=== PATIENT | female | born 1940 | race Caucasian/White ===

== ENCOUNTER → 2017-08-30 12:45 | Outpatient (CLI) | payer MEDICARE, OTHER, SELFPAY ==
--- NOTE | 2017-08-30 | DI.MG.S_ITS ---
BILATERAL DIGITAL SCREENING MAMMOGRAM 3D/2D WITH CAD: 08/30/2017 CLINICAL: Routine screening. Family history of breast cancer. Comparison is made to exams dated: 05/10/2015 mammogram - [facility], 05/17/2013 mammogram, and 04/23/2011 mammogram - [facility]. There are scattered fibroglandular elements in both breasts. Current study was also evaluated with a Computer Aided Detection (CAD) system. No significant masses, calcifications, or other findings are seen in either breast. There has been no significant interval change. IMPRESSION: NEGATIVE There is no mammographic evidence of malignancy. A 1 year screening mammogram is recommended. This exam was interpreted at Station ID: [id number]. NOTE: For mammograms, a report in lay terms will be sent to the patient. Approximately 15% of breast malignancies will not be visualized mammographically. In the management of a palpable breast mass, a negative mammogram must not discourage biopsy of a clinically suspicious lesion. Electronically Signed By: Jovanni chapman/karla:08/30/2017 16:45:35 letter sent: Normal Exam ACR BI-RADS Category 1: Negative 3341F
== END ==
PROVIDERS: Family Provider Internal Medicine; PCP Internal Medicine; Visit Provider Internal Medicine
DX: Z12.31 Encounter for screening mammogram for malignant neoplasm of breast (principal); Z80.3 Family history of malignant neoplasm of breast; M85.852 Other specified disorders of bone density and structure, left thigh
CPT/HCPCS: 77063; 77067; 77080

== ENCOUNTER → 2017-10-27 13:38 | Oncology outpatient (ONC) | payer MEDICARE, OTHER, SELFPAY ==
[2017-10-27] MEDS: ZOLEDRONIC ACID 5 MG in SODIUM CHLORIDE 0.9% 100 ML 318.75 ML IV (14:35)
[2017-10-27 14:38] VITALS: BP 137/77; RESP 16; TEMP 36.7; O2SAT 97
== END ==
LOC: ONC 13:41
PROVIDERS: Family Provider Internal Medicine; PCP Internal Medicine; Visit Provider Internal Medicine
DX: M81.0 Age-related osteoporosis without current pathological fracture (principal)
CPT/HCPCS: 96374; J3489

== ENCOUNTER 2017-11-04 12:46 | Day surgery (SDC) | payer MEDICARE, OTHER, SELFPAY ==
[2017-11-04 13:03] VITALS: BP 139/77; PULSE 79; RESP 16; TEMP 36.3; O2SAT 98
[2017-11-04] MEDS: SODIUM CHLORIDE 0.9% 1,000 ML 200 ML IV (13:13)
--- NOTE | 2017-11-04 13:42 | PM.HP.1 ---
History of Present Illness Date Patient Seen: 11/04/17 Time Patient Seen: 13:42 Chief complaint: colonoscopy 20019 Narrative: 77-year-old female with personal history of colon cancer status post resection of 2 tumors actually the most recent surgery being 2006. She presents now for colorectal surveillance. It has been a number of years since her last examination following surgery. She has had no gastrointestinal symptoms recently. Denies any nausea, vomiting, abdominal pain, unintended weight loss, change in bowel habits, diarrhea, constipation, melena, hematochezia, or bright red blood per rectum. Patient History Medical History Colon cancer (Acute) Gastroesophageal reflux disease (Acute) Hyperlipidemia (Acute) Hypertension (Acute) Local recurrence of colon cancer (Acute) Osteoporosis (Acute) Surgical History History of colectomy (Acute) History of partial colectomy (Acute) History of tonsillectomy (Acute) Family & Social History Family History: Reviewed 11/04/17 by Jagdeep Jessica MD Social History: household members spouse Meds Home Medications Medication Instructions Recorded Confirmed Type atorvastatin 80 mg PO DAILY 11/03/17 11/04/17 History diltiazem HCl 180 mg PO DAILY 11/03/17 11/04/17 History hydrochlorothiazide 25 mg PO DAILY 11/03/17 11/04/17 History aspirin 325 mg PO DAILY 11/04/17 11/04/17 History ranitidine HCl 150 mg PO DAILY 11/04/17 11/04/17 History Allergies Allergy/AdvReac Type Severity Reaction Status Date / Time No Known Drug Allergies Allergy Verified 11/04/17 13:01 Review of Systems Review of Systems All systems reviewed & are unremarkable except as noted in HPI and below Exam Vital Signs (past 8 hours): - 11/04/17 13:03 Temperature 97.3 F L Pulse Rate 79 Respiratory Rate 16 Blood Pressure 139/77 H Pulse Oximetry 98 Oxygen Delivery Method Room Air,Nasal Cannula Narrative Exam Narrative: Well-nourished well-developed thin female in no acute distress. Alert oriented x3. is at the bedside for my entire visit Sclera nonicteric Neck is supple Chest clear to auscultation bilaterally with regular rate and rhythm. No crackles or wheezes Abdomen soft, nondistended, nontender, no masses Extremities show no clubbing, cyanosis, or edema Objective Labs Labs: No recent laboratory or radiographic studies for review Assessment & Plan Plan: Assessment/Plan Narrative: 77-year-old female with history of colorectal neoplasia on 2 occasions requiring surgical resection who now presents for surveillance. Colonoscopy is currently recommended. Technical details of the procedure were explained. Risks, benefits, alternatives were discussed. Risks including but not limited to sedation, aspiration, bleeding, pain, missed lesion, incomplete examination, need for further radiographic studies, colonic perforation, need for major abdominal surgery, and all attendant risks of major surgery were explained at length. All questions were answered to her satisfaction, and the patient voiced understanding. Consent was placed on the chart. We will proceed as above.
--- NOTE | 2017-11-04 13:46 | PM.PREOP ---
Pre-operative Note Interval Note Pre-op Check: Yes History & Physical Reviewed by Physician, Yes Exam Performed and Yes History & Physical exam performed today by Physician Changes: No H&P completed within 30 days and has changed as indicated here:: Patient seen and examined today. History physical examination documented and placed on the chart. Proceed with colonoscopy today as planned for colorectal surveillance given her history of colorectal cancer. ASA Class (for procedural sedation): II
[2017-11-04] MEDS: MIDAZOLAM 5 MG/5 ML VIAL IV (14:01)
[2017-11-04] MEDS: fentaNYL 250 MCG/5 ML INJ IV (14:01)
[2017-11-04 14:07] VITALS: BP 116/65; PULSE 80; RESP 22; TEMP 36.4; O2SAT 94
--- NOTE | 2017-11-04 14:09 | P.OP.ENDO_ITS ---
Operative Date/Time/Diagnoses Date of procedure: 11/04/17 Time of procedure: 14:05 Pre-op diagnosis: Personal history of colorectal cancer status post colectomy Post-op diagnosis: same Procedure & Clinicians Study performed: 1. Sedation per surgeon 2. Colonoscopy Same procedure as scheduled: Yes Indications: 77-year-old female with personal history of colon cancer on 2 separate occasions requiring surgical resection who presents now for colorectal surveillance. Colonoscopy is once again recommended. Surgeon: Jagdeep Jessica Procedure Notes SCOAP/Timeout: Yes Procedure in detail: After obtaining informed consent the patient was brought to the endoscopy suite and attached all appropriate cardiopulmonary monitors. Nasal cannula oxygen was applied. She was placed in left lateral decubitus position. A SCOAP time-out was performed per standard protocol. Intravenous sedation was achieved per the surgeon using fentanyl and Versed. Digital rectal examination revealed no masses or abnormalities. Colonoscope was inserted into the rectum and the bowel was insufflated with carbon dioxide. Under direct visualization of the colonic lumen the scope was advanced to approximately 55 cm from the anal verge where the ileocolonic anastomosis was identified. Scope was then slowly withdrawn and the bowel was meticulously and circumferentially examined. She had only a small portion of colon remaining but the mucosa was smooth and without any evidence of lesions or inflammation. Few scattered diverticula were noted but without inflammation or strictures. Colocolonic anastomosis was noted to be patent. There is no evidence of any polyps or other neoplastic changes. Retroflex view the distal rectum and anus showed no abnormalities. No significant hemorrhoid disease. Scope was removed and the procedure terminated. Patient taken recovery stable condition. Of note , the withdrawal time was significantly truncated because of the very short residual colon following 2 prior colectomies. Scope withdrawal time: 3:45 min Sedation minutes: 12 Findings: diverticulosis and other findings (Widely patent ileocolonic anastomosis and colocolonic anastomosis) Specimen(s): none sent Complications: none Recommendations: Colonscopy in 3 years Plan for aftercare: 1. Discharged home Follow up: as needed Disposition: PACU
[2017-11-04 14:12] VITALS: BP 116/65; PULSE 77; RESP 22; TEMP 36.6; O2SAT 95
[2017-11-04 14:17] VITALS: BP 108/64; PULSE 89; RESP 23; TEMP 36.4; O2SAT 99
[2017-11-04 14:20] VITALS: BP 126/73; PULSE 83; RESP 16; TEMP 36.6; O2SAT 98
[2017-11-04 14:44] VITALS: BP 121/70; PULSE 81; RESP 16; TEMP 36.7; O2SAT 97
== END 2017-11-04 14:52 ==
LOC: ENDO 12:47
PROVIDERS: Family Provider Internal Medicine; PCP Internal Medicine; Visit Provider Surgery
PROC: 0DJD8ZZ Inspection of Lower Intestinal Tract, Via Natural or Artificial Opening Endoscopic (ICD-10-PCS; CPT 45378; principal; 2017-11-04 14:00)
DX: Z85.038 Personal history of other malignant neoplasm of large intestine (principal); Z90.49 Acquired absence of other specified parts of digestive tract; K57.30 Diverticulosis of large intestine without perforation or abscess without bleeding; K21.9 Gastro-esophageal reflux disease without esophagitis; E78.5 Hyperlipidemia, unspecified; I10 Essential (primary) hypertension
CPT/HCPCS: G0105; 99152; J2250; J3010

== ENCOUNTER → 2018-11-04 11:03 | Outpatient (CLI) | payer MEDICARE, OTHER, SELFPAY ==
[2018-11-04 12:47] LABS: BUN Creatinine Ratio 12.9 (6-22); Blood Urea Nitrogen 9 mg/dL (7-17); Estimated Glomerular Filt Rate > 60.0 mL/min (>60)
== END ==
PROVIDERS: PCP Internal Medicine; Visit Provider Internal Medicine
DX: I10 Essential (primary) hypertension (principal); M81.0 Age-related osteoporosis without current pathological fracture
CPT/HCPCS: 36415; 82565; 84520

== ENCOUNTER → 2019-12-04 11:17 | Outpatient (CLI) | payer MEDICARE, OTHER, SELFPAY ==
[2019-12-04 11:53] LABS: Add Manual Diff / Slide Review NO; Basophils Absolute Auto 0 /uL (0-100); Basophils Percent Auto 0.9 % (0-2); Eosinophils Absolute Auto 300 /uL (0-450); Hematocrit 37.3 % (36-46); Hemoglobin 12.5 g/dL (12.0-16.0); Lymphocytes Absolute Auto 2000 /uL (1100-4500); Lymphocytes Percent Auto 34.4 % (25-40); Mean Corpuscular HGB Conc 33.6 % (30-36); Mean Corpuscular Hemoglobin 31.9 PG (26-34); Mean Corpuscular Volume 94.9 fL (80-100); Monocytes Absolute Auto 700 /uL (0-900); Monocytes Percent Auto 12.8 % (3-14); Neutrophils Absolute Auto 2600 /uL (1500-7000); Neutrophils Percent Auto 45.9 % (50-75); Platelet Count 249 X10^3/uL (150-400); Red Blood Cell Count 3.93 X10^6/uL (4.0-5.2); Red Cell Distribution Width 14.2 % (11.6-14.8); White Blood Cell Count 5.7 X10^3/uL (4.5-11.0)
[2019-12-04 12:12] LABS: Alanine Aminotransferase 21 IU/L (<35); Albumin 4.1 g/dL (3.5-5.0); Albumin Globulin Ratio 1.2 (1.0-2.8); Alkaline Phosphatase 80 U/L (38-126); Aspartate Aminotransferase 31 IU/L (14-36); BUN Creatinine Ratio 14.1 (6-22); Bilirubin Total 0.7 mg/dL (0.2-1.3); Blood Urea Nitrogen 11 mg/dL (7-17); Calcium 9.5 mg/dL (8.4-10.2); Carbon Dioxide 31 mmol/L (22-32); Chloride 103 mmol/L (98-107); Cholesterol 231 mg/dL (140-199); Estimated Glomerular Filt Rate > 60.0 mL/min (>60); Globulin 3.5 g/dL (1.7-4.1); Glucose 91 mg/dL (80-110); HDL Cholesterol 66 mg/dL (40-60); HEMOLYSIS < 15 (0-50); LDL Cholesterol Calculated 133 mg/dL (<100); Potassium 4.3 mmol/L (3.4-5.1); Sodium 138 mmol/L (137-145); Total Protein 7.6 g/dL (6.3-8.2); Triglycerides 161 mg/dL (35-150)
[2019-12-04 13:04] LABS: TSH w/ Reflex to FT4 2.31 uIU/mL (0.47-4.68)
== END ==
PROVIDERS: PCP Internal Medicine; Referring Provider Internal Medicine; Visit Provider Internal Medicine
DX: C18.9 Malignant neoplasm of colon, unspecified (principal); E78.00 Pure hypercholesterolemia, unspecified; I10 Essential (primary) hypertension; M81.0 Age-related osteoporosis without current pathological fracture
CPT/HCPCS: 36415; 80053; 80061; 84443; 85025

== ENCOUNTER → 2019-12-05 14:12 | Outpatient (CLI) | payer MEDICARE, OTHER, SELFPAY | PROVIDERS: PCP Internal Medicine; Referring Provider Internal Medicine; Visit Provider Internal Medicine | DX: M85.852 Other specified disorders of bone density and structure, left thigh (principal); Z78.0 Asymptomatic menopausal state; Z87.891 Personal history of nicotine dependence; Z82.62 Family history of osteoporosis | CPT/HCPCS: 77080 ==

== ENCOUNTER → 2019-12-12 14:00 | Outpatient (CLI) | payer MEDICARE, OTHER, SELFPAY ==
[2019-12-12 14:18] VITALS: BP 126/76; PULSE 18; RESP 15; TEMP 36.3; O2SAT 97
[2019-12-12] MEDS: ZOLEDRONIC ACID 5 MG in SODIUM CHLORIDE 0.9% 100 ML 425 ML IV (14:36)
== END ==
PROVIDERS: PCP Internal Medicine; Referring Provider Internal Medicine; Visit Provider Internal Medicine
DX: M81.0 Age-related osteoporosis without current pathological fracture (principal)
CPT/HCPCS: 96365; J3489

== ENCOUNTER 2022-04-16 02:07 | Emergency (ER) | payer MEDICARE, OTHER, SELFPAY ==
[2022-04-16] VITALS (11 sets, daily range): BP systolic 114–158; BP diastolic 57–78; PULSE 74–89; RESP 10–38; TEMP 36.2–36.6; O2SAT 86–100; BMI 22.8
--- NOTE | 2022-04-16 02:10 | DI.RAD.S_ITS ---
PROCEDURE: XR SHOULDER RT MIN 2V INDICATIONS: eval for fracture vs dislocation TECHNIQUE: 2 views of the shoulder were acquired. COMPARISON: None. FINDINGS: Bones: There is anterior, inferior (subcoracoid) dislocation of the right humeral head. No definite fracture identified. Degenerative changes of the acromioclavicular joint are present. Coracoclavicular and acromioclavicular intervals are maintained. No suspicious bony lesions. Visualized ribs appear intact. Soft tissues: No suspicious soft tissue calcifications. IMPRESSION: Anterior, inferior dislocation of right humeral head without definite fracture identified. No significant discrepancy with the retail shift leader radiology preliminary report. Dictated by: Figueroa Schuster M.D. on 04/16/2022 at 7:48 Approved by: Figueroa Schuster M.D. on 04/16/2022 at 7:50
--- NOTE | 2022-04-16 02:19 | DI.RAD.S_ITS ---
PROCEDURE: XR SHOULDER RT MIN 2V INDICATIONS: post reduction TECHNIQUE: 2 views of the shoulder were acquired. COMPARISON: [facility], CR, XR SHOULDER RT MIN 2V, 04/16/2022, 2:10. FINDINGS: Bones: Post reduction alignment of previously dislocated right humeral head appears to be anatomic in location. There is however, cephalad migration of the humeral head with narrowing of the subacromial space. This may represent sequela underlying chronic rotator cuff tear. No definite fracture identified. Degenerative changes of the acromioclavicular joint. Coracoclavicular and acromioclavicular intervals are maintained. Soft tissues: No suspicious soft tissue calcifications. IMPRESSION: Status post reduction of previously dislocated right humeral head. No definite fracture seen. Cephalad migration of the humeral head with narrowing of the subacromial space may be related to presence of chronic rotator cuff tear. Follow-up imaging can be considered. No significant discrepancy with the material handler 1st shift radiology preliminary report. Dictated by: Figueroa Schuster M.D. on 04/16/2022 at 7:50 Approved by: Figueroa Schuster M.D. on 04/16/2022 at 7:52
--- NOTE | 2022-04-16 02:20 | ED.GENADULT ---
HPI - General Adult General Chief complaint: Trauma Stated complaint: GLF Time Seen by Provider: 04/16/22 02:10 Source: patient and EMS Mode of arrival: EMS Limitations: no limitations History of Present Illness HPI narrative: Patient is an 81-year-old female who is not on anticoagulation who is here for evaluation of a right shoulder injury after sustaining a ground level fall at home. Reported by EMS that the patient called them after falling at home after tripping on the carpet. She is an obvious deformity to the right shoulder. She is received a total of 100 mcg of fentanyl and 20 mg of ketamine prior to arrival. Patient reports no other injuries from the event. No neck pain. Did not hit her head. Related Data Home Medications Medication Instructions Recorded Confirmed atorvastatin 80 mg tablet 80 mg PO DAILY 11/03/17 11/04/17 diltiazem HCl 180 mg capsule,24 180 mg PO DAILY 11/03/17 11/04/17 hr,extended release hydrochlorothiazide 25 mg tablet 25 mg PO DAILY 11/03/17 11/04/17 aspirin 325 mg tablet 325 mg PO DAILY 11/04/17 11/04/17 ranitidine HCl 150 mg tablet 150 mg PO DAILY 11/04/17 11/04/17 Allergies Allergy/AdvReac Type Severity Reaction Status Date / Time No Known Drug Allergies Allergy Verified 11/04/17 13:01 Review of Systems Constitutional Constitutional: Reports system reviewed and no additional complaints, except as documented Cardiovascular Cardiovascular: Reports system reviewed and no additional complaints, except as documented Respiratory Respiratory: Reports system reviewed and no additional complaints, except as documented Musculoskeletal Musculoskeletal: Reports system reviewed and no additional complaints, except as documented Integumentary/Breasts Skin/Breast: Reports system reviewed and no additional complaints, except as documented Neurologic Neurologic: Reports system reviewed and no additional complaints, except as documented Patient History Medical History Colon cancer Gastroesophageal reflux disease Hyperlipidemia Hypertension Local recurrence of colon cancer Osteoporosis Surgical History History of colectomy History of partial colectomy History of tonsillectomy Family History Brother Cancer Social History household members: spouse Exam Initial Vital Signs Initial Vital Signs: Vital Signs Temperature 97.1 F L 04/16/22 02:08 Pulse Rate 89 04/16/22 02:08 Respiratory Rate 20 04/16/22 02:08 Blood Pressure 158/74 H 04/16/22 02:08 Pulse Oximetry 100 04/16/22 02:08 Oxygen Delivery Method 04/16/22 02:08 HENMT Head: normal to inspection and normocephalic Resp Effort & Inspection: normal respiratory effort Auscultation: clear to auscultation bilaterally Cardio Rate: regular rate Rhythm: regular rhythm Neuro General: patient alert and patient awake Extrem Other: Obvious deformity to right shoulder. Her right elbow and wrist doctor I cuff. Left upper extremity is unremarkable. Bilateral lower extremities unremarkable. Pelvis is stable. Procedures Orthopedic Joint Reduction Joint #1: Time Out Performed: Yes Side: right Joint Reduction Location: shoulder Analgesia: procedural sedation Shoulder Technique Used (if applicable): Milch Post-reduction neuro exam: intact Post-reduction vascular: intact Post Reduction X-Ray Obtained: Yes Post Reduction X-Ray Results: reduced Splint Applied: No Patient Tolerated Procedure: Well Procedural Sedation Consent signed: Yes Indication: fracture/dislocation reduction ASA Class: II Mallampati Airway Classification: Class II Preparation: telemetry monitor applied, pulse oximeter, capnometry used, supplemental O2 applied, suction/airway equipment at bedside and IV secured IV Propofol dose (mg): 60 Intraservice time/total sedation time (min): 15 ED Sedation Level: Moderate (Concious) Patient Tolerated Procedure: Well Complications: hypoventilation Interventions: Airway repositioned Scores GCS Cristel coma scale eye opening: Spontaneous [place] coma scale verbal response: Orientated [place] coma scale motor response: Obey commands [place] coma scale total score: 15 Nexus Score for C-Spine Focal Neurologic deficit present: No Midline spinal tenderness present: No Altered level of conciousness present: No Intoxication present: No Distracting Injury Present: No Nexus Criteria for C-spine: 0 Course Orders Ordered: ED Orders 04/16/22 02:10 XR shoulder RT min 2V Stat 04/16/22 02:19 XR shoulder RT min 2V Stat RT Consult Eval and Treat Now Sodium Chloride (Normal Saline 0.9%) 1,000 mls @ 125 mls/hr IV CONT AMIE Last Infusion: 04/16/22 04:09 Dose: 0 mls/hr Documented By: Admin: 04/16/22 02:30 Dose: 125 mls/hr Documented By: TEE Discontinued Medications Propofol (Propofol 200 Mg/20 Ml Vial) 100 mg IV NOW ONE Stop: 04/16/22 02:19 Last Admin: 04/16/22 02:30 Dose: 60 mg Documented By: TEE Vital Signs Vital signs: Vital Signs - 8 hr 04/16/22 02:08 04/16/22 02:30 04/16/22 02:35 Temperature 97.1 F L Pulse Rate 89 80 75 Respiratory Rate 20 16 10 L Blood Pressure 158/74 H 142/65 H 141/71 H Pulse Oximetry 100 100 96 Oxygen Delivery Method Room Air Oxygen Flow Rate 6 04/16/22 02:37 04/16/22 02:42 04/16/22 02:30 Temperature Pulse Rate 79 79 80 Respiratory Rate 16 16 Blood Pressure 122/58 L 146/66 H 142/65 H Pulse Oximetry 94 100 100 Oxygen Delivery Method Oxygen Flow Rate 6 6 04/16/22 02:35 04/16/22 02:40 04/16/22 02:45 Temperature Pulse Rate 77 76 79 Respiratory Rate 35 H 20 28 H Blood Pressure 114/71 122/58 L Pulse Oximetry 88 L 100 Oxygen Delivery Method Oxygen Flow Rate 04/16/22 02:50 04/16/22 03:00 04/16/22 02:46 Temperature Pulse Rate 83 75 76 Respiratory Rate 31 H 38 H 14 Blood Pressure 146/66 H 133/57 L Pulse Oximetry 86 L 100 Oxygen Delivery Method Oxygen Flow Rate Medical Decision Making Lab Data Labs: Point of Care Testing Test Results Not applicable Point of care testing: Point of Care Testing Test Results Not applicable Imaging Data Extremity x-ray #1: Radiologist's Impression: Sub coracoid anterior shoulder dislocation Extremity x-ray #2: Radiologist's Impression: Successful reduction of previously noted anterior shoulder dislocation MDM Narrative Medical decision making narrative: Patient's right shoulder was dislocated and it was reduced as described above. She is no other injuries from the event. Her C-spine is cleared by nexus criteria. She did not hit her head. Will hold on any further radiologic studies. Patient was able to stand and walk at bedside and was also able to tolerate oral intake. Patient felt comfortable going home. Was discharged to her with return precautions and follow-up instructions and care instructions. She expressed understanding and agreement. Discharge Plan Departure Patient Disposition: Home Clinical Impression: Shoulder dislocation Instructions: How to Use a Sling, DI for Shoulder Dislocation Activity Restrictions/Additional Instructions: The sling is for your comfort. You can take it off to shower and to get dressed. I recommend that you contact your primary doctor for follow-up as you will most likely require physical therapy. Take all of your medications as directed. Return to the emergency department for any new or worsening symptoms Prescriptions: No Action atorvastatin 80 mg Tablet 80 mg PO DAILY diltiazem HCl 180 mg Capsule,Extended Release 24 Hr 180 mg PO DAILY hydrochlorothiazide 25 mg Tablet 25 mg PO DAILY ranitidine HCl 150 mg Tablet 150 mg PO DAILY aspirin 325 mg Tablet 325 mg PO DAILY Referrals: Jagdeep Robin MD [Primary Care Provider] - Stand Alone Forms: Patient Portal/API
[2022-04-16] MEDS: propofoL 200 MG/20 ML VIAL 100 MG IV (02:30)
[2022-04-16] MEDS: SODIUM CHLORIDE 0.9% 1,000 ML 125 ML IV (02:30)
--- NOTE | 2022-04-16 02:43 | PC.NURSE ---
Procedural sedation complete. A total of 60mg of propofol given. Pt is alert and talking to staff. Post procedure XRs obtained and sling has been applied to R arm. Pt coughs on command and reports feeling better.
== END 2022-04-16 04:30 | disposition home or self-care (01) ==
PROVIDERS: Emergency Provider Emergency Medicine; PCP Internal Medicine
DX: S43.004A Unspecified dislocation of right shoulder joint, initial encounter (principal); W01.0XXA Fall on same level from slipping, tripping and stumbling without subsequent striking against object, initial encounter; Z79.899 Other long term (current) drug therapy
CPT/HCPCS: 23650; 73030; 96360; 96361; 99152; 99284; 99285; 99291; J2704

== ENCOUNTER 2022-04-18 12:03 | Emergency (ER) | payer MEDICARE, OTHER, SELFPAY ==
[2022-04-18 12:10] VITALS: BP 179/83; PULSE 117; RESP 18; TEMP 36.3; O2SAT 100; BMI 22.4
--- NOTE | 2022-04-18 12:16 | DI.RAD.S_ITS ---
PROCEDURE: XR NASAL BONES MIN 3V INDICATIONS: fall, bleeding from nose TECHNIQUE: 3 views of the nasal bones acquired. COMPARISON: None. FINDINGS: Bones: No fractures or dislocations. Nasal septum is midline. Normal nasociliary nerve grooves are noted. Soft tissues: No suspicious soft tissue calcifications. IMPRESSION: Normal nasal bone radiographs. No fracture. Approved by: Antione Ruiz M.D. on 04/18/2022 at 12:21
--- NOTE | 2022-04-18 12:41 | ED.FALL ---
HPI - Fall General Chief Complaint: Fall Stated Complaint: broke nose on Wed. started bleeding Time Seen by Provider: 04/18/22 12:13 Source: patient Mode of arrival: Ambulatory History of Present Illness HPI Narrative: Patient is a 81-year-old female history of hypertension tried on aspirin presenting today with epistaxis. SHe actually fell April 16 she grabbed onto a chair with wheels and fell onto her left shoulder and had a left shoulder dislocation. She did not hit her head or lose consciousness. She did hit her nose a little bit. Mild contusion. She is not been nauseated vomiting no numbness tingling or weakness. She now says that she woke up this morning she felt like she had a blow her nose that there was something back there and she blew out a bunch of blood it took a while for it to stop it actually did stop in the emergency department. It also has restarted since then she initially felt like it was coming out the [id number] command right. She denies any dizziness lightheadedness chest pain shortness of breath or other symptoms Related Data Home Medications Medication Instructions Recorded Confirmed atorvastatin 80 mg tablet 80 mg PO DAILY 11/03/17 11/04/17 diltiazem HCl 180 mg capsule,24 180 mg PO DAILY 11/03/17 11/04/17 hr,extended release hydrochlorothiazide 25 mg tablet 25 mg PO DAILY 11/03/17 11/04/17 aspirin 325 mg tablet 325 mg PO DAILY 11/04/17 11/04/17 ranitidine HCl 150 mg tablet 150 mg PO DAILY 11/04/17 11/04/17 Allergies Allergy/AdvReac Type Severity Reaction Status Date / Time No Known Drug Allergies Allergy Verified 11/04/17 13:01 Patient History Medical History (Updated 04/18/22 @ 14:46 by Gissell Stern DO) Colon cancer Gastroesophageal reflux disease Hyperlipidemia Hypertension Local recurrence of colon cancer Osteoporosis Surgical History History of colectomy History of partial colectomy History of tonsillectomy Family History Brother Cancer Social History household members: spouse Substance Use Type: does not use Exam Initial Vital Signs Initial Vital Signs: Vital Signs Temperature 97.3 F L 04/18/22 12:10 Pulse Rate 117 H 04/18/22 12:10 Respiratory Rate 18 04/18/22 12:10 Blood Pressure 179/83 H 04/18/22 12:10 Pulse Oximetry 100 04/18/22 12:10 Oxygen Delivery Method 04/18/22 12:10 GENERAL: Alert pleasant 81-year-old female no acute distress HEENT: Head atraumatic,EOMI, pupils reactive, face symmetric, moist mucous membranes, NOSE: No active bleeding, mild contusion but no gross bony deformity of the no PHARYNX: I do not appreciate significant blood in posterior pharynx CARDIOVASCULAR: Regular rate and rhythm without murmurs, rubs or gallops. RESPIRATORY: Breath sounds equal bilaterally, no wheezes rales or rhonchi. EXTREMITIES: Normal range of motion, no clubbing or edema. Neurovascularly intact NEUROLOGICAL: Alert and oriented x4. SKIN: Warm, dry, no laceration, no petechiae, no rashes or lesions. Course Orders Ordered: ED Orders 04/18/22 12:16 XR nasal bones min 3V Stat Discontinued Medications Oxymetazoline HCl (Oxymetazoline Nasal [place] 15 Ml) 2 sprays NASAL NOW ONE Stop: 04/18/22 13:16 Last Admin: 04/18/22 13:28 Dose: 2 sprays Documented By: BORIS Vital Signs Vital signs: Vital Signs - 8 hr 04/18/22 12:10 04/18/22 14:53 Temperature 97.3 F L Pulse Rate 117 H 95 H Respiratory Rate 18 Blood Pressure 179/83 H 145/72 H Pulse Oximetry 100 98 Oxygen Delivery Method Room Air Room Air MDM - Fall Imaging Data XR nasal bone: Radiologist's Impression: JAVIER Zhu [id number] XRay Report Signed Patient: Zina Garcia MR#: [id number] : 1940 Acct:[id number] Age/Sex: 81 / F Date of Service: 04/18/22 Loc: ED Accession Number: [id number] ?? Procedure: XR nasal bones min 3V Ordering Provider: Gissell Stern D.O. PROCEDURE:? XR NASAL BONES MIN 3V ? INDICATIONS:? fall, bleeding from nose ? TECHNIQUE:? 3 views of the nasal bones acquired.? ? COMPARISON:? None. ? FINDINGS:? ? Bones:? No fractures or dislocations.? Nasal septum is midline.? Normal nasociliary nerve grooves are noted.? ? Soft tissues:? No suspicious soft tissue calcifications.? ? IMPRESSION:? Normal nasal bone radiographs.? No fracture. ? ? ? Approved by: Antione Ruiz M.D. on 04/18/2022 at 12:21? MDM Narrative Medical decision making narrative: Patient 81-year-old female on aspirin presents epistaxis. Actually had stopped bleeding and then restarted again. She had Afrin and then a nasal clamp. It has now stopped bleeding again for a 2nd time. No evidence of posterior bleeding. She overall feels comfortable and ready to go home. Her nasal bone x-ray is negative for fracture. We discussed how to care for it at home. She did fall a couple days ago did not really hit her head lose consciousness. She has no focal deficits nausea or vomiting. At this time I do not see any need for CT imaging. Discharge Plan Departure Patient Disposition: Home Clinical Impression: Epistaxis Instructions: Nosebleed Activity Restrictions/Additional Instructions: *You have been diagnosed with nosebleed *What to do: At this time if you start having nosebleed again apply the clamp for about 30-45 minutes you may also apply ice at this time. If it is still bleeding use a couple sprays of Afrin each nostril and apply the clamp again. If this continues to bleed or is running down the back of your throat please return to the emergency department *Continue to take medications as directed *Follow up with your primary care provider in 2-3 days or call [phone] *Return to ER if you should have persistent bleeding despite above measures or any new, worsening or concerning symptoms Prescriptions: No Action atorvastatin 80 mg Tablet 80 mg PO DAILY diltiazem HCl 180 mg Capsule,Extended Release 24 Hr 180 mg PO DAILY hydrochlorothiazide 25 mg Tablet 25 mg PO DAILY ranitidine HCl 150 mg Tablet 150 mg PO DAILY aspirin 325 mg Tablet 325 mg PO DAILY Referrals: Christi Ascencio MD [Primary Care Provider] - Stand Alone Forms: Patient Portal/API
[2022-04-18] MEDS: OXYMETAZOLINE NASAL SPRAY 15 ML 2 SPRAYS NASAL (13:28)
[2022-04-18 14:53] VITALS: BP 145/72; PULSE 95; O2SAT 98
== END 2022-04-18 14:57 | disposition home or self-care (01) ==
PROVIDERS: Emergency Provider Emergency Medicine; PCP Internal Medicine
DX: R04.0 Epistaxis (principal); Z79.82 Long term (current) use of aspirin
CPT/HCPCS: 70160; 99283; A9270

== ENCOUNTER → 2024-01-12 09:42 | Outpatient (CLI) | payer MEDICARE, OTHER, SELFPAY ==
--- NOTE | 2024-01-12 09:44 | DI.RAD.S_ITS ---
PROCEDURE: XR DEXA AXIAL SKELETON INDICATIONS: FU ON OSTEOPOROSIS COMPARISON: [facility], CR, XR DEXA AXIAL SKELETON, 12/05/2019, 14:33. FINDINGS: Lumbar Spine: Bone mineral density 1.177 g/cm2, T score 1.8, compared to 1.6. Left Hip: Bone mineral density 0.664 g/cm2, T score -2.3, compared to -1.9. Left Femoral Neck: Bone mineral density 0.613 g/cm2, T score -2.1, compared to -2.2. Right Hip: Bone mineral density 0.671 g/cm2, T score -2.2, compared to -2.1. Right Femoral Neck: Bone mineral density 0.632 g/cm2, T score -2.0, compared to -2.1. Fracture Risk Calculation (when applicable): 10-year fracture risk of a major osteoporotic fracture 14% percent and of a hip fracture 4.3% percent. (T score greater or equal to -1.0 to: NORMAL) (T score from -1.1 to -2.4: OSTEOPENIA) (T score less than or equal to -2.5: OSTEOPOROSIS) IMPRESSION: Severe osteopenia within the left and right hips progressive compared to prior exam. Follow-up guidelines as follows: Osteoporosis: Consider a repeat DEXA and Vertebral Fracture Assessment (VFA) exam in 2 years or sooner if medically necessary, to reassess this patient's status. Osteopenia: Consider a repeat DEXA in 2-3 years to reassess this patient's status, or if there is a new clinical indication. Normal: Consider a repeat DEXA in 5 years or sooner, or if there is a new clinical indication. All treatment decisions require clinical judgment and consideration of individual patient factors, including patient preferences, comorbidities, previous drug use, risk factors not captured in the FRAX model (e.g., frailty, falls, vitamin D deficiency, increased bone turnover, interval significant decline in bone density ) and possible under- or over-estimation of fracture risk by FRAX. In addition, the NOF Guide recommends that FDA-approved medical therapies be considered in postmenopausal women and men age >= 50 years with a: * Hip or vertebral (clinical or morphometric) fracture * T-score of <=-2.5 at the spine or hip * Ten-year fracture probability by FRAX of >= 3% for hip fracture or >=20% for major osteoporotic fracture. People with diagnosed cases of osteoporosis or at high risk for fracture should have regular bone mineral density tests. For patients eligible for Medicare, routine testing is allowed once every 2 years. The testing frequency can be increased to one year for patients who have rapidly progressing disease, those who are receiving or discontinuing medical therapy to restore bone mass, or have additional risk factors. Dictated by: Ernestine Centeno M.D. on 01/12/2024 at 16:33 Approved by: Ernestine Centeno M.D. on 01/12/2024 at 16:35
== END ==
PROVIDERS: PCP Internal Medicine; Referring Provider Internal Medicine; Visit Provider Internal Medicine
DX: M81.0 Age-related osteoporosis without current pathological fracture (principal)
CPT/HCPCS: 77080

== ENCOUNTER 2024-05-26 21:31 | Emergency (ER) | payer MEDICARE, OTHER, SELFPAY ==
[2024-05-26 21:38] VITALS: BP 153/65; PULSE 104; RESP 18; TEMP 36.1; O2SAT 100; BMI 20.5
[2024-05-26 22:16] LABS: Add Manual Diff / Slide Review NO; Basophils Absolute Auto 0 /uL (0-100); Basophils Percent Auto 0.3 % (0-2); Eosinophils Absolute Auto 300 /uL (0-450); Eosinophils Percent Auto 2.5 % (2-4); Hematocrit 23.9 % (36-46); Hemoglobin 7.6 g/dL (12.0-16.0); Lymphocytes Absolute Auto 2500 /uL (1100-4500); Lymphocytes Percent Auto 24.7 % (25-40); Mean Corpuscular HGB Conc 31.7 % (30-36); Mean Corpuscular Hemoglobin 24.2 PG (26-34); Mean Corpuscular Volume 76.2 fL (80-100); Monocytes Absolute Auto 1200 /uL (0-900); Monocytes Percent Auto 11.9 % (3-14); Neutrophils Absolute Auto 6100 /uL (1500-7000); Neutrophils Percent Auto 60.6 % (50-75); Platelet Count 463 X10^3/uL (150-400); Red Blood Cell Count 3.14 X10^6/uL (4.0-5.2); Red Cell Distribution Width 17.7 % (11.6-14.8); White Blood Cell Count 10.2 X10^3/uL (4.5-11.0)
[2024-05-26 22:20] LABS: INR 1.1 (0.9-1.3); Prothrombin Time 12.2 SECONDS (9.4-12.5)
[2024-05-26 22:22] LABS: PTT Partial Thromboplastin Tim 30 SECONDS (25.1-36.5)
[2024-05-26 22:25] LABS: Alanine Aminotransferase 38 IU/L (<35); Albumin 3.4 g/dL (3.5-5.0); Alkaline Phosphatase 80 U/L (38-126); Aspartate Aminotransferase 72 IU/L (14-36); BUN Creatinine Ratio 20.4 (6-22); Bilirubin Total 0.3 mg/dL (0.2-1.3); Blood Urea Nitrogen 21 mg/dL (7-17); Calcium 8.4 mg/dL (8.4-10.2); Carbon Dioxide 27 mmol/L (22-32); Chloride 102 mmol/L (98-107); Estimated Glomerular Filt Rate 54 mL/min (>60); Globulin 3.3 g/dL (1.7-4.1); Glucose 96 mg/dL (80-110); HEMOLYSIS < 15 (0-50); Potassium 3.3 mmol/L (3.4-5.1); Sodium 135 mmol/L (137-145); Total Protein 6.7 g/dL (6.3-8.2)
[2024-05-26 23:44] VITALS: BP 130/60; PULSE 88; RESP 20; TEMP 37.1; O2SAT 98
[2024-05-27] VITALS (11 sets, daily range): BP systolic 131–150; BP diastolic 60–65; PULSE 73–84; RESP 16–18; TEMP 36.5–36.7; O2SAT 99–100
--- NOTE | 2024-05-27 02:58 | ED.RECABL ---
HPI - Recheck/Abnormal Lab/Rx General Chief Complaint: Recheck/Abnormal Lab/Rx Stated Complaint: PCP sent in for low H&H results Time Seen by Provider: 05/26/24 22:52 Source: patient, RN notes reviewed and old records reviewed Mode of arrival: Ambulatory Limitations: no limitations History of Present Illness HPI narrative: 83-year-old female history of hypertension, dyslipidemia history of colon cancer remotely with colon resection. Patient states she had prior colonoscopies about 10-15 years ago which were negative was told she did not have to worry about it anymore. She had outpatient labs with her primary care was found to be anemic she has been told she was low before but they told her to come to the ER because she needed blood. She was felt little more tired and fatigued but denies any other symptoms. No fevers or chills no chest pain or shortness of breath. No nausea or vomiting. No diarrhea or constipation. No black or bloody stools. No dysuria urgency or frequency. She has not noted any inappropriate bleeding or bruising. She did require a blood transfusion once many years ago when she had colon cancer. She states no anticoagulants but appears to be on aspirin daily. No known drug allergies. Former smoker, 1 or 2 alcoholic drinks daily, no recreational drugs. Her primary care today prescribe her iron as well as PPI. Primary care is Dr. Christi ascencio. She was accompanied by her daughter. Related Data Home Medications Medication Instructions Recorded Confirmed atorvastatin 80 mg tablet 80 mg PO DAILY 11/03/17 11/04/17 diltiazem HCl 180 mg capsule,24 180 mg PO DAILY 11/03/17 11/04/17 hr,extended release hydrochlorothiazide 25 mg tablet 25 mg PO DAILY 11/03/17 11/04/17 aspirin 325 mg tablet 325 mg PO DAILY 11/04/17 11/04/17 ranitidine HCl 150 mg tablet 150 mg PO DAILY 11/04/17 11/04/17 Allergies Allergy/AdvReac Type Severity Reaction Status Date / Time No Known Drug Allergies Allergy Verified 11/04/17 13:01 Review of Systems Review of Systems ROS Unobtainable: All systems reviewed & are unremarkable except as noted in HPI and below Patient History Medical History (Updated 05/27/24 @ 03:17 by Radhika Choudhury DO) Osteoporosis Gastroesophageal reflux disease Hyperlipidemia Hypertension Local recurrence of colon cancer Colon cancer Surgical History History of tonsillectomy History of partial colectomy History of colectomy Family History Brother Cancer Social History household members: spouse Smoking Status: Former smoker Smoking Status: Former smoker Exam Narrative Exam Narrative: GENERAL: Alert and oriented x three, thin female in no acute distress. HEENT: Head normocephalic, atraumatic, EOMI, pupils reactive, face symmetric, moist mucous membranes NECK: Supple, full range of motion CARDIOVASCULAR: Regular rate and rhythm without murmurs, rubs or gallops. RESPIRATORY: Breath sounds equal bilaterally, no wheezes rales or rhonchi. ABDOMEN: Soft, nontender. Normoactive bowel sounds all 4 quadrants. No guarding or rebound, rigidity, no mass, ELENITA patient has hard stool, no black or blood, stool occult faintly positive. : No CVA tenderness EXTREMITIES: Normal range of motion, no clubbing or edema. Neurovascularly intact NEUROLOGICAL: Cranial nerves II through XII grossly intact. Moving all extremities SKIN: Warm, dry, no petechiae, no rashes or lesions. Initial Vital Signs Initial Vital Signs: Vital Signs Temperature 97.0 F L 05/26/24 21:38 Pulse Rate 104 H 05/26/24 21:38 Respiratory Rate 18 05/26/24 21:38 Blood Pressure 153/65 H 05/26/24 21:38 Pulse Oximetry 100 05/26/24 21:38 Oxygen Delivery Method Room Air 05/26/24 21:38 Course Orders Ordered: ED Orders 05/26/24 21:51 Complete Blood Count AUTO DIFF Stat Comprehensive Metabolic Panel Stat PTT Partial Thromboplastin Jason Stat Prothrombin Time INR Stat Type and Screen Stat 05/27/24 00:25 PRBC [Packed Cells] Stat Discontinued Medications Pantoprazole Sodium (Pantoprazole 40 Mg Vial) 80 mg IV NOW ONE Stop: 05/27/24 03:14 Last Admin: 05/27/24 05:08 Dose: 80 mg Documented By: MS Potassium Chloride (Potassium Chloride 20 Meq Tab) 40 meq PO NOW ONE Stop: 05/27/24 03:00 Last Admin: 05/27/24 03:07 Dose: 40 meq Documented By: Vital Signs Vital signs: Vital Signs - 8 hr 05/26/24 23:44 05/27/24 02:45 05/27/24 02:46 Temperature 98.8 F Pulse Rate 88 Respiratory Rate 20 Blood Pressure 130/60 142/62 H Pulse Oximetry 98 99 Oxygen Delivery Method Room Air 05/27/24 02:46 05/27/24 02:57 05/27/24 03:00 Temperature 98 F Pulse Rate 77 73 Respiratory Rate 16 Blood Pressure 142/62 H 131/60 Pulse Oximetry 99 Oxygen Delivery Method 05/27/24 03:00 05/27/24 03:13 05/27/24 03:30 Temperature 97.7 F Pulse Rate 74 83 75 Respiratory Rate 18 Blood Pressure 131/60 Pulse Oximetry 99 100 Oxygen Delivery Method Room Air 05/27/24 03:30 05/27/24 04:00 05/27/24 04:00 Temperature Pulse Rate 80 Respiratory Rate Blood Pressure 145/65 H 138/61 Pulse Oximetry 100 Oxygen Delivery Method 05/27/24 04:18 05/27/24 04:18 05/27/24 04:30 Temperature Pulse Rate 84 Respiratory Rate 18 Blood Pressure 136/65 137/65 Pulse Oximetry 100 Oxygen Delivery Method 05/27/24 04:30 05/27/24 05:00 05/27/24 05:00 Temperature 98.1 F 97.7 F Pulse Rate 77 78 Respiratory Rate 16 16 Blood Pressure 137/65 150/65 H Pulse Oximetry 100 Oxygen Delivery Method Room Air 05/27/24 05:00 05/27/24 05:02 Temperature 97.7 F Pulse Rate 82 78 Respiratory Rate 16 16 Blood Pressure 137/65 Pulse Oximetry 100 Oxygen Delivery Method Room Air MDM - Recheck/Abnormal Lab/Rx Lab Data 05/26/24 21:51 05/26/24 21:51 Labs: Lab Results 05/26/24 Range/Units 21:51 WBC 10.2 (4.5-11.0) X10^3/uL RBC 3.14 L (4.0-5.2) X10^6/uL Hgb 7.6 L (12.0-16.0) g/dL Hct 23.9 L (36-46) % MCV 76.2 L (80-100) fL MCH 24.2 L (26-34) PG MCHC 31.7 (30-36) % RDW 17.7 H (11.6-14.8) % Plt Count 463 H (150-400) X10^3/uL Neut % (Auto) 60.6 (50-75) % Lymph % (Auto) 24.7 L (25-40) % [place] % (Auto) 11.9 (3-14) % Eos % (Auto) 2.5 (2-4) % Baso % (Auto) 0.3 (0-2) % Neut # (Auto) 6100 (8432-9902) /uL Lymph # (Auto) 2500 (5803-7129) /uL [place] # (Auto) 1200 H (0-900) /uL Eos # (Auto) 300 (0-450) /uL Baso # (Auto) 0 (0-100) /uL PT 12.2 (9.4-12.5) SECONDS INR 1.1 (0.9-1.3) APTT 30 (25.1-36.5) SECONDS Sodium 135 L (137-145) mmol/L Potassium 3.3 L (3.4-5.1) mmol/L Chloride 102 (98-107) mmol/L Carbon Dioxide 27 (22-32) mmol/L BUN 21 H (7-17) mg/dL Creatinine 1.03 (0.52-1.04) mg/dL Estimated GFR 54 L (>60) mL/min BUN/Creatinine Ratio 20.4 (6-22) Glucose 96 (80-110) mg/dL Calcium 8.4 (8.4-10.2) mg/dL Total Bilirubin 0.3 (0.2-1.3) mg/dL AST 72 H (14-36) IU/L ALT 38 H (<35) IU/L Alkaline Phosphatase 80 (38-126) U/L Total Protein 6.7 (6.3-8.2) g/dL Albumin 3.4 L (3.5-5.0) g/dL Globulin 3.3 (1.7-4.1) g/dL Albumin/Globulin Ratio 1.0 (1.0-2.8) Blood Type O Positive Antibody Screen Negative Crossmatch See Detail MDM Narrative Medical decision making narrative: 83-year-old female sent by primary care for low H and H she has been reportedly to be anemic in the past but not this low. I do not have any prior labs available for comparison. Patient was slightly tachycardic but in the room is 73 without any additional intervention she was not been hypotensive. Patient was given a PPI, discussed and we will transfuse 1 unit. After discussion discussed observation versus discharge home with plan for colonoscopy. Patient and family elected discharge home but did offer to chat with the hospitalist. Labs show white count of 10 hemoglobin of 7.6 was 12.5 and 2020 microcytic with platelets of 463. Coags are negative sodium is 135 potassium 3.3, chloride 102 CO2 is 27 BUN 21 creatinine 1.03 glucose is 96 AST is 72 ALT is 38. Patient tolerated quite well. She feels comfortable returning home afterwards in his accompanied by her family. Discharge Plan Departure Patient Disposition: Home Clinical Impression: Anemia Activity Restrictions/Additional Instructions: On your evaluation it is possible that your anemia could be from GI bleed I do recommend that you have colonoscopy and/or EGD for evaluation particularly with your history of colon cancer. Contacts included below to set this up please call Wednesday morning. Please talk with your physician to have your labs rechecked in the next several days. Take the medications prescribed by your physician including the iron and antacid medication to protect your stomach. Please return for fevers, new abdominal back or flank pain, lightheadedness or passing out, vomiting, black or bloody stools or other new or concerning changes. Prescriptions: No Action atorvastatin 80 mg Tablet 80 mg PO DAILY diltiazem HCl 180 mg Capsule,Extended Release 24 Hr 180 mg PO DAILY hydrochlorothiazide 25 mg Tablet 25 mg PO DAILY ranitidine HCl 150 mg Tablet 150 mg PO DAILY aspirin 325 mg Tablet 325 mg PO DAILY Referrals: Tae Cook MD [Physician] - Christi Ascencio MD [Primary Care Provider] - Stand Alone Forms: Patient Portal/API/Survey
[2024-05-27] MEDS: POTASSIUM CHLORIDE 20 MEQ TAB 40 MEQ PO (03:07)
--- NOTE | 2024-05-27 03:14 | PC.NURSE ---
Pt reports denies dizziness or lightheadedness, denies signs of bleeding, including in gi tract. does state has had diarrhea about 1 week ago for about 8 days, denies dark tarry looking of blood visible.
[2024-05-27] MEDS: PANTOPRAZOLE 40 MG VIAL 80 MG IV (05:08)
== END 2024-05-27 05:30 | disposition home or self-care (01) ==
PROVIDERS: Emergency Provider Emergency Medicine; PCP Internal Medicine
DX: D64.9 Anemia, unspecified (principal); I10 Essential (primary) hypertension; E78.5 Hyperlipidemia, unspecified; Z85.038 Personal history of other malignant neoplasm of large intestine; Z87.891 Personal history of nicotine dependence; F10.90 Alcohol use, unspecified, uncomplicated
CPT/HCPCS: 36415; 36430; 80053; 85025; 85610; 85730; 86850; 86900; 86901; 96374; 99284; 99285; P9016; J2470

== ENCOUNTER 2024-06-09 19:34 | Observation (INO) | payer MEDICARE, OTHER, SELFPAY ==
[2024-06-09] VITALS (12 sets, daily range): BP systolic 87–139; BP diastolic 34–69; PULSE 74–111; RESP 12–90; TEMP 36.3–37; O2SAT 97–99; BMI 20.1
--- NOTE | 2024-06-09 | PATH_ITS ---
[facility] Accession Number: [id number] No. of containers..02 Tissue . 01 Material submitted: . PART A: colon - ILEALCOLONIC ANASTAMONIC MASS PART B: colon - DESCENDING POLYP . 01 Diagnosis: A. ILEOCOLONIC ANASTOMOTIC MASS, BIOPSY: Invasive adenocarcinoma, well to moderately differentiated. See comment. . B. DESCENDING COLON: Tubular adenoma. See comment. MRV 06/13/2024 1248 Local . 01 Comment: Part A: Immunohistochemistry for mismatch repair protein status has been performed with the following results: . MLH1: Loss of expression. PMS2: Loss of expression. MSH2: Intact nuclear expression. MSH6: Intact nuclear expression. . Loss of nuclear expression of MLH1 and PMS2: Testing for methylation of the MLH1 promoter and/or mutation of BRAF is indicated (the presence of a BRAF V600E mutation and/or MLH1 methylation suggests that the tumor is sporadic and germline evaluation is probably not indicated; absence of both MLH1 methylation and of BRAF V600E mutation suggests the possibility of Myers syndrome and sequencing and/or large deletion/duplication testing of germline MLH1 may be indicated). . Testing for MLH1 promotor methylation and BRAF mutation analysis has been ordered and the results will be reported in an addendum. . Part B: A separate fragment of tumor is present along with, but not directly associated with, the tubular adenoma. This fragment is favored to be carryover from the tumor in part A. Clinical and endoscopic correlation is recommended. . Dr. Jovanni Lott has reviewed this case and agrees with the above diagnosis. . The preliminary results were discussed with Dr. Braxton at 11:00 am on 06/13/2024. . Technical Note: The immunohistochemical stains reported were performed with appropriate controls at [facility] ([facility] [address], [facility] [address]). This test was developed and performance characteristics validated by [facility]. It has not been cleared or approved by the Food and Drug Administration. . 01 Electronically signed: . Elizabeth Argueta DO, Pathologist NPI- [id number] . 01 Gross description: . Part A: ILEALCOLONIC ANASTAMONIC MASS: Received in formalin are 3 fragment(s) of rose, soft tissue measuring 0.2 x 0.2 x 0.2 cm to 0.5 x 0.3 x 0.2 cm submitted entirely in 1 cassette(s) Part B: DESCENDING POLYP : Received in formalin are 3 fragment(s) of rose, soft tissue measuring 0.1 x 0.1 x 0.1 cm to 0.3 x 0.3 x 0.2 cm submitted entirely in 1 cassette(s) /JOSEY 06/10/2024 0108 Local . 01 Pathologist provided ICD-10: Z12.11, C18.9 . 01 CPT . 589099, 007427, S52383, M71268 Specimen Comment: A courtesy copy of this report has been sent to [facility] Pathology Performed at: [address], [place], [place] [id number] MD Jovanni Lott MD Phone: [phone]
--- NOTE | 2024-06-09 14:32 | PM.HP.IH.1 ---
History of Present Illness History of Present Illness Date Patient Seen: 06/09/24 Time Patient Seen: 14:32 [place] [facility] [place]: this is a 84-year-old with a history of hypertension and colon cancer who presents for new onset of anemia. Patient states that she was feeling quite tired in April and became short of breath. She presented to the emergency department and underwent an assessment and was found to be anemic. Patient's hemoglobin was 8. She was discharged and told to follow up for outpatient EGD and colonoscopy. Patient denies any abdominal pain. Patient states that since her colon cancer diagnosis and her undergoing 2 resections, she is overall felt well denies any significant issues. [facility] Medical History (Updated 06/09/24 @ 14:34 by Lien Braxton MD) Osteoporosis Gastroesophageal reflux disease Hyperlipidemia Hypertension Local recurrence of colon cancer Colon cancer Surgical History History of tonsillectomy History of partial colectomy History of colectomy Family History Brother Cancer Social History household members: spouse Smoking Status: Former smoker Meds Home Medications and Allergies Home Medications Medication Instructions Recorded Confirmed Type atorvastatin 80 mg tablet 80 mg PO DAILY 11/03/17 06/09/24 History diltiazem HCl 180 mg capsule,24 180 mg PO DAILY 11/03/17 06/09/24 History hr,extended release hydrochlorothiazide 25 mg tablet 25 mg PO DAILY 11/03/17 06/09/24 History aspirin 325 mg tablet 325 mg PO DAILY 11/04/17 06/09/24 History sodium,potassium,mag sulfates 17.5 See Rx Instructions PO .COMPLEX 06/05/24 Rx gram-3.13 gram-1.6 gram oral soln #354 mL (Suprep Bowel Prep Kit) Allergies Allergy/AdvReac Type Severity Reaction Status Date / Time No Known Drug Allergies Allergy Verified 06/09/24 12:30 Exam Vital Signs (past 8 hours): - 06/09/24 12:37 Temperature 97.5 F L Pulse Rate 111 H Respiratory Rate 16 Blood Pressure 139/69 Pulse Oximetry 98 Oxygen Delivery Method Room Air Oxygen Delivery Method Room Air Const General: cooperative, healthy appearing and comfortable Nutritional Appearance: average body habitus Orientation: alert, awake and oriented x3 HENMT Head: normal to inspection and normocephalic Nose: external nose normal Eyes General: appearance normal, both eyes and all related structures Neck Neck: normal visual inspection Resp Effort & Inspection: normal respiratory effort and able to speak in complete sentences GI Inspection: normal to inspection, no obesity and scaphoid Palpation: soft, No guarding and No splenomegaly Back/Spine/Pelvis Back: normal to inspection Skin General: no rashes or lesions noted Neuro General: patient alert, patient awake and patient oriented x3 Cognition: normal cognition Objective Labs 06/09/24 13:10 Labs: Laboratory Results - last 24 hr 06/09/24 13:10 Hgb 8.0 L Hct 25.0 L Assessment & Plan Assessment and plan (1) Anemia: Qualifiers: Anemia type: iron deficiency Iron deficiency anemia type: chronic blood loss Qualified Code(s): D50.0 - Iron deficiency anemia secondary to blood loss (chronic) Status: Acute (2) History of colon cancer: Status: Acute Assessment & Plan narrative: This 84-year-old woman with a history of colon cancer who presents with anemia. We will proceed with EGD and colonoscopy to identify the source. -NPO, IV fluids -ParQ was held and patient agrees to proceed with EGD and colonoscopy -plan for discharge postprocedure Time-Based Coding :: [TOTAL MINUTES] spent with patient and on the chart (including review of chart, obtaining history, exam, reviewing outside data, placing orders, documenting exam and treatment plan, and counseling patient) on [DATE]. PROFEE Felt [employer]anger Document charge(s): Yes Charge Codes Inpatient/observation care including admit and discharge same day: [id number]
--- NOTE | 2024-06-09 14:57 | PM.OP.EC ---
Operative Date/Time/Diagnoses Date of procedure: 06/09/24 Time of procedure: 14:57 Pre-op diagnosis: anemia Post-op diagnosis: same Procedure & Clinicians Study performed: 1. EGD 2. Diagnostic Colonoscopy Same procedure as scheduled: Yes Indications: This is a 84-year-old woman with a history of colon cancer status post resection x2 who presents with new onset of anemia. Surgeon: Lien Braxton Procedure Notes SCOAP/Timeout: 1501 Procedure in detail: Consent: The benefits, risks and alternatives to the procedure were discussed with the patient and informed written consent was obtained. Preparation: EKG, pulse, pulse oximeter and blood pressure were monitored throughout the procedure Medications: - monitoring anesthesia care provided by [employer] Rectal exam: Normal rectal exam. Procedure: The gastroscope was passed through the oropharynx into the esophagus without incident. Patient was found to have a patulous slightly tortuous esophagus. Patient's Z-line was at approximately 34 cm and her gastroesophageal junction was measured at 35 cm. Patient was found to have a small hiatal hernia. The gastroscope was then passed through the body of the stomach past the pylorus into the duodenal. The patient was found to have a normal duodenal bulb. The patient was found to have a 2 cm lipomatous mass in the 2nd portion of the duodenal. This was not biopsied it appeared to be benign in nature. the scope was withdrawn into the stomach and retroflexed. No Mikey's ulcer or mucosal abnormalities were identified. There was no evidence of gastritis, AVMs or any other gastric abnormalities. After completion of the gastric portion of the EGD, the scope was withdrawn into the esophagus and there was no evidence of esophagitis identified. The scope was removed from the esophagus and the oropharynx without incident. We then proceeded with the colonoscopy. The colonoscope was passed through the anus under direct visualization and was advanced with ease To the ileocolonic anastomosis. Unfortunately patient was found to have a large fungating partially obstructing ileal colonic mass concerning for recurrence of colon cancer. Multiple biopsies of the mass were taken Using a cold biopsy forcepsand sent to pathology as permanent specimens. A tattoo was placed distal of the mass using methylene blue. The insertion time was approximately 20 minutes and the withdrawal time was approximately 5 minutes. The shortening of the withdrawal time was secondary to the patient having approximately 50-60 cm of colon after her multiple colonic resections. The patient was also noted to have a descending colon polyp that was approximately 6 mm. This was taken with a biopsy forceps cold.. The time to the cecum was approximately 6 minutes. The withdrawal time was 19 minutes. After resection of the polyp, no bleeding was noted. The scope was withdrawn and all the mucosa was carefully examined. Findings: Patient was found to have an obstructing ileocolonic anastomosis mass concerning for recurrence of her colon cancer. Patient also had a 6 mm descending colonic polyp near the ileocolonic mass. A tattoo was placed at the anastomotic mass. Unplanned events: There were no unplanned events. Summary: - normal EGD with no evidence of bleeding Or mucosal abnormalities - patient was found to have a near obstructing ileocolonic mass at the anastomosis. Recommendations: - Full set of labs ordered including CBC, CMP, CEA - CT chest abdomen pelvis order to identify any metastatic disease as well as evaluate for obstruction. - Patient will need to have likely colorectal surgery urgent consultation for resection and likely permanent and ileostomy. - We will discuss the results with the patient as well as her family prior to discharge Scope withdrawal time: 5 Sedation minutes: 24 Findings: hiatal hernia and possible cancer ( ileocolonic anastomotic mass concerning for recurrence of cancer) Specimen(s): other ( 2 specimens were sent. One was biopsy of the ileocolonic mass. Second specimen that was sent was the descending colonic polyp) Complications: none Post-procedure Recommendations: Colonscopy in 1 year and Other recommendation ( patient will need urgent follow-up with colorectal surgery to discuss resection of ileocolonic mass.) Follow up: weeks Disposition: PACU
[2024-06-09 15:45] LABS: Add Manual Diff / Slide Review NO; Basophils Absolute Auto 0 /uL (0-100); Basophils Percent Auto 0.5 % (0-2); Eosinophils Absolute Auto 200 /uL (0-450); Eosinophils Percent Auto 2.3 % (2-4); Hematocrit 22.3 % (36-46); Hemoglobin 7.2 g/dL (12.0-16.0); Lymphocytes Absolute Auto 1100 /uL (1100-4500); Lymphocytes Percent Auto 17.2 % (25-40); Mean Corpuscular HGB Conc 32.2 % (30-36); Mean Corpuscular Hemoglobin 25.2 PG (26-34); Mean Corpuscular Volume 78.5 fL (80-100); Monocytes Absolute Auto 700 /uL (0-900); Monocytes Percent Auto 10.6 % (3-14); Neutrophils Absolute Auto 4600 /uL (1500-7000); Neutrophils Percent Auto 69.4 % (50-75); Platelet Count 330 X10^3/uL (150-400); Red Blood Cell Count 2.84 X10^6/uL (4.0-5.2); Red Cell Distribution Width 20.1 % (11.6-14.8); White Blood Cell Count 6.7 X10^3/uL (4.5-11.0)
--- NOTE | 2024-06-09 15:46 | SUR.PHASEII ---
Patient to CT from PACU with [employer]
[2024-06-09 15:57] LABS: Alanine Aminotransferase 20 IU/L (<35); Albumin 2.7 g/dL (3.5-5.0); Albumin Globulin Ratio 0.9 (1.0-2.8); Alkaline Phosphatase 64 U/L (38-126); Anisocytosis 2+; Aspartate Aminotransferase 33 IU/L (14-36); Bilirubin Total 0.3 mg/dL (0.2-1.3); Blood Urea Nitrogen 16 mg/dL (7-17); Calcium 8.1 mg/dL (8.4-10.2); Carbon Dioxide 20 mmol/L (22-32); Chloride 106 mmol/L (98-107); Estimated Glomerular Filt Rate > 60 mL/min (>60); Globulin 3.1 g/dL (1.7-4.1); Glucose 68 mg/dL (80-110); HEMOLYSIS < 15 (0-50); Potassium 3.6 mmol/L (3.4-5.1); Sodium 135 mmol/L (137-145); Total Protein 5.8 g/dL (6.3-8.2)
--- NOTE | 2024-06-09 15:58 | DI.CT.S_ITS ---
PROCEDURE: CT CHEST ABD PEL W CON INDICATIONS: hx colon CA, evaluate mass at ilealcolonic anastomosis TECHNIQUE: After the administration of intravenous contrast, 5 mm thick sections acquired from the lung apices to the symphysis. 5 mm coronal and sagittal reformats were performed, with additional 7 mm MIP reformats through the lungs. For radiation dose reduction, the following was used: automated exposure control, adjustment of mA and/or kV according to patient size. COMPARISON: None. FINDINGS: CHEST: Lower Neck: No enlarged lymph nodes. Thyroid: No thyroid nodules which require sonographic follow up, per consensus guidelines. Axillae: No enlarged lymph nodes. Chest Wall: Degenerative changes both shoulders. Lungs and Pleura: No pneumothorax or pleural effusions. No consolidation or suspicious nodules. Heart: Heart size is normal. No pericardial effusion. Thoracic Vessels: The aorta and pulmonary arteries demonstrate normal size. Mediastinum and Melania: No enlarged lymph nodes. Esophagus: No wall thickening. No hiatal hernia. ABDOMEN: Liver: No solid mass. Gallbladder: Calcified stones noted in the lumen of the gallbladder. No pericholecystic inflammatory change. Biliary ducts: No biliary dilation. Pancreas: No ductal dilation. Spleen: Size is within normal limits. Adrenal Glands: No adrenal nodules. Kidneys and Ureters: Malrotated right kidney. 5 cm simple renal cortical cyst. Left kidney unremarkable. Stomach and Bowel: Near the colonic splenic flexure, multiple surgical clips are present. The focal circumferential mass lesion extends over 5.2 cm in length. Associated suture line present as well. No obstruction Peritoneum: No abnormal intraperitoneal fluid. No free air. Ventral Wall: No significant ventral hernia. Abdominal Nodes: No retroperitoneal or mesenteric adenopathy by size criteria. Vessels: Atherosclerotic stenosis noted involving the SMA origin. No aortic aneurysm or dissection PELVIS: Pelvic Organs: Unremarkable. Bladder: No bladder wall thickening, accounting for underdistention. Pelvic Nodes: No enlarged lymph nodes. Miscellaneous: No inguinal hernias are seen. Bones: Degenerative disc disease and arthropathy noted in lower lumbar spine. IMPRESSION: Circumferential colonic wall thickening at the splenic flexure is consistent with adenocarcinoma. No obstruction. Associated colonic suture line in adjacent surgical clips suggests prior anastomosis. Approved by: Antione Ruiz M.D. on 06/09/2024 at 17:17
[2024-06-09] MEDS: SODIUM CHLORIDE 0.9% 1,000 ML 100 ML IV (20:12)
[2024-06-09] MEDS: PIPERACILLIN/TAZO 3.375 GM in SODIUM CHLORIDE 0.9% 100 ML IV (20:12)
[2024-06-10 00:22] VITALS: BP 115/49; PULSE 81; TEMP 36.9; O2SAT 98
[2024-06-10 02:27] LABS: Hematocrit 26.5 % (36-46); Hemoglobin 8.5 g/dL (12.0-16.0)
[2024-06-10] MEDS: PIPERACILLIN/TAZO 3.375 GM in SODIUM CHLORIDE 0.9% 100 ML IV (03:06)
[2024-06-10 04:20] VITALS: BP 111/51; PULSE 69; RESP 18; TEMP 37.1; O2SAT 94
[2024-06-10] MEDS: SODIUM CHLORIDE 0.9% 1,000 ML 100 ML IV (05:50)
--- NOTE | 2024-06-10 06:31 | P.HP_ITS ---
History of Present Illness History of Present Illness Chief complaint: [facility] Narrative: 84-year-old female with past medical history of hypertension, hyperlipidemia, osteoporosis, GERD, and colon cancer presents with concern of GI bleeding after a colonoscopy. Of note, the patient initially presented to our ER on May 26, 2024 for anemia requiring blood transfusion. Per the patient report the patient had a history of colon cancer with colon resections in the past. The patient had a colonoscopy about 10 to 15 years ago and was negative and told that she was in remission. The patient denies being on any blood thinner other than a daily aspirin. The patient still admit to drink 1 to 2-3 alcoholic drinks per day. The patient hemoglobin then on 26 May was noted to be 7.4. The patient had 1 unit of blood transfusion in ER and was discharged home to follow-up with general surgery for a endoscopy and colonoscopy. However the surgeon who performed colonoscopy today found a new mass in her colon. There was concern that there was a perforation with a colonoscopy but CT scan of the abdomen shows today shows no perforation. The patient was asked to come into our hospital by the general surgeon to be monitor and to have 1 unit of pRBC transfused. The general surgeon request that we admit the patient to observe the patient overnight and monitor hemoglobin and to watch for GI bleed. FORMERLY [facility], [facility]–1983 Medical History (Updated 06/09/24 @ 14:34 by Lien Braxton MD) Osteoporosis Gastroesophageal reflux disease Hyperlipidemia Hypertension Local recurrence of colon cancer Colon cancer Surgical History History of tonsillectomy History of partial colectomy History of colectomy Family History Brother Cancer Social History household members: spouse Smoking Status: Former smoker alcohol intake: current Meds Home Medications and Allergies Home Medications Medication Instructions Recorded Confirmed Type atorvastatin 80 mg tablet 80 mg PO DAILY 11/03/17 06/09/24 History diltiazem HCl 180 mg capsule,24 180 mg PO DAILY 11/03/17 06/09/24 History hr,extended release hydrochlorothiazide 25 mg tablet 25 mg PO DAILY 11/03/17 06/09/24 History aspirin 325 mg tablet 325 mg PO DAILY 11/04/17 06/09/24 History sodium,potassium,mag sulfates 17.5 See Rx Instructions PO .COMPLEX 06/05/24 06/09/24 Rx gram-3.13 gram-1.6 gram oral soln #354 mL (Suprep Bowel Prep Kit) Allergies Allergy/AdvReac Type Severity Reaction Status Date / Time No Known Drug Allergies Allergy Verified 06/09/24 12:30 Review of Systems Review of Systems ROS: Yes All systems reviewed with the patient and are negative except as otherwise documented Exam Vital Signs (past 8 hours): - 06/09/24 23:34 06/10/24 00:22 06/10/24 04:20 Temperature 98.4 F 98.8 F Pulse Rate 81 69 Respiratory Rate 18 Blood Pressure 115/49 L 111/51 L Pulse Oximetry 99 98 94 Oxygen Delivery Method Room Air Oxygen Delivery Method Room Air Oxygen Flow Rate 0 Narrative Exam Narrative: Physical Exam: GENERAL: The patient is not in any acute distressed. Awake and alert. HEENT: Nonicteric sclerae, PERRLA, EOMI. Oropharynx clear. Moist mucous membranes. Conjunctivae appear well perfused. HEART: Regular rate and rhythm without murmurs. No lower extremities edema. LUNGS: Clear to auscultation bilaterally. No wheezing, crackles or rhonchi ABDOMEN: Soft, positive bowel sounds, nontender. SKIN: No rash, no excessive bruising, petechiae, or purpura. NEUROLOGIC: AxO x 3. Cranial nerves II-XII intact without motor/sensory deficit. Objective Labs 06/10/24 01:50 06/09/24 15:30 Labs: Laboratory Results - last 24 hr 06/09/24 06/09/24 06/09/24 13:10 15:30 20:55 WBC 6.7 RBC 2.84 L Hgb 8.0 L 7.2 L Hct 25.0 L 22.3 L MCV 78.5 L MCH 25.2 L MCHC 32.2 RDW 20.1 H Plt Count 330 Neut % (Auto) 69.4 Lymph % (Auto) 17.2 L [place] % (Auto) 10.6 Eos % (Auto) 2.3 Baso % (Auto) 0.5 Neut # (Auto) 4600 Lymph # (Auto) 1100 [place] # (Auto) 700 Eos # (Auto) 200 Baso # (Auto) 0 RBC Morphology See below Anisocytosis 2+ H Sodium 135 L Potassium 3.6 Chloride 106 Carbon Dioxide 20 L BUN 16 Creatinine 0.89 Estimated GFR > 60 BUN/Creatinine Ratio 18.0 Glucose 68 L Calcium 8.1 L Total Bilirubin 0.3 AST 33 ALT 20 Alkaline Phosphatase 64 Total Protein 5.8 L Albumin 2.7 L Globulin 3.1 Albumin/Globulin Ratio 0.9 L Carcinoembryonic Ag 11.0 H Blood Type O Positive Antibody Screen Negative Crossmatch See Detail 06/10/24 01:50 WBC RBC Hgb 8.5 L Hct 26.5 L MCV MCH MCHC RDW Plt Count Neut % (Auto) Lymph % (Auto) [place] % (Auto) Eos % (Auto) Baso % (Auto) Neut # (Auto) Lymph # (Auto) [place] # (Auto) Eos # (Auto) Baso # (Auto) RBC Morphology Anisocytosis Sodium Potassium Chloride Carbon Dioxide BUN Creatinine Estimated GFR BUN/Creatinine Ratio Glucose Calcium Total Bilirubin AST ALT Alkaline Phosphatase Total Protein Albumin Globulin Albumin/Globulin Ratio Carcinoembryonic Ag Blood Type Antibody Screen Crossmatch Assessment & Plan Assessment & Plan narrative: Concern for GI bleeding after colonoscopy. Admit the patient to medical telemetry as observation. Continue to monitor for any GI bleed. As stated above the patient had a colonoscopy with new colon mass today and with a remote history of colon cancer. Will monitor for any GI bleed and transfuse accordingly. Appreciates further input and management per general surgery. Anemia secondary to acute blood loss. Again patient had 1 unit of blood transfused. Will monitor hemoglobin and transfuse further if needed. Monitor blood pressure with good IV access. Hyperlipidemia. Resume home statin when able. Hypertension. Monitor blood pressure and treat if needed. GERD. Resume home PPI. DVT prophylaxis SCD only due to GI bleed. CODE STATUS full code. Disposition likely home in 1 to 2 days Time-Based Coding :: [TOTAL MINUTES] spent with patient and on the chart (including review of chart, obtaining history, exam, reviewing outside data, placing orders, documenting exam and treatment plan, and counseling patient) on [DATE]. Quality VTE Deep Vein Thrombosis/Pulmonary Embolism Present on Admission: No
[2024-06-10 06:37] LABS: Add Manual Diff / Slide Review NO; Basophils Absolute Auto 100 /uL (0-100); Basophils Percent Auto 0.7 % (0-2); Eosinophils Absolute Auto 400 /uL (0-450); Eosinophils Percent Auto 4.8 % (2-4); Hematocrit 26.7 % (36-46); Hemoglobin 8.6 g/dL (12.0-16.0); Lymphocytes Absolute Auto 1400 /uL (1100-4500); Lymphocytes Percent Auto 18.6 % (25-40); Mean Corpuscular HGB Conc 32.4 % (30-36); Mean Corpuscular Hemoglobin 26.3 PG (26-34); Mean Corpuscular Volume 81.4 fL (80-100); Monocytes Absolute Auto 900 /uL (0-900); Monocytes Percent Auto 11.5 % (3-14); Neutrophils Absolute Auto 4800 /uL (1500-7000); Neutrophils Percent Auto 64.4 % (50-75); Platelet Count 328 X10^3/uL (150-400); Red Blood Cell Count 3.28 X10^6/uL (4.0-5.2); Red Cell Distribution Width 20.3 % (11.6-14.8); White Blood Cell Count 7.4 X10^3/uL (4.5-11.0)
[2024-06-10 06:48] LABS: BUN Creatinine Ratio 15.1 (6-22); Blood Urea Nitrogen 14 mg/dL (7-17); Calcium 7.8 mg/dL (8.4-10.2); Carbon Dioxide 15 mmol/L (22-32); Chloride 111 mmol/L (98-107); Estimated Glomerular Filt Rate > 60 mL/min (>60); HEMOLYSIS < 15 (0-50); Magnesium 1.9 mg/dL (1.6-2.3); Potassium 3.8 mmol/L (3.4-5.1); Sodium 137 mmol/L (137-145)
[2024-06-10 06:59] LABS: Glucose 40 mg/dL (80-110)
[2024-06-10 07:39] LABS: Anisocytosis 2+
[2024-06-10 08:00] VITALS: BP 123/42; PULSE 88; RESP 17; TEMP 36.7; O2SAT 98
[2024-06-10] MEDS: dilTIAZem CD 180 MG CAP PO (08:52)
[2024-06-10] MEDS: ATORVASTATIN 20 MG TABLET 80 MG PO (08:52)
--- NOTE | 2024-06-10 09:10 | P.DS_ITS ---
History of Present Illness History of Present Illness Date Patient Seen: 06/10/24 Time Patient Seen: 09:10 Chief complaint: SDC Narrative: 84-year-old female with past medical history of hypertension, hyperlipidemia, osteoporosis, GERD, and colon cancer presents with concern of GI bleeding after a colonoscopy. Of note, the patient initially presented to our ER on May 26, 2024 for anemia requiring blood transfusion. Per the patient report the patient had a history of colon cancer with colon resections in the past. The patient had a colonoscopy about 10 to 15 years ago and was negative and told that she was in remission. The patient denies being on any blood thinner other than a daily aspirin. The patient still admit to drink 1 to 2-3 alcoholic drinks per day. The patient hemoglobin then on 26 May was noted to be 7.4. The patient had 1 unit of blood transfusion in ER and was discharged home to follow-up with general surgery for a endoscopy and colonoscopy. However the surgeon who performed colonoscopy today found a new mass in her colon. There was concern that there was a perforation with a colonoscopy but CT scan of the abdomen shows today shows no perforation. The patient was asked to come into our hospital by the general surgeon to be monitor and to have 1 unit of pRBC transfused. The general surgeon request that we admit the patient to observe the patient overnight and monitor hemoglobin and to watch for GI bleed. Discharge Providers Provider Discharge Date: 06/10/24 Primary care physician: Christi Ascencio MD Discharge provider: Chong Francisco DO Summary Hospital Course Discharge Diagnosis: Lower GI bleeding, acute on chronic Acute blood loss anemia, present on admission, improved, stable Hyperlipidemia. Chronic Hypertension. Chronic, POA GERD. Chronic Hospital Course: This is an 84-year-old female who was admitted after outpatient colonoscopy with concern for possible perforation or bleeding after biopsies of a likely malignant mass that was seen during the procedure. Patient had a CT scan just after her procedure which did not show any perforation. Hemoglobin was 7.2, where it had been a few weeks ago in the emergency room. Patient was hemodynamically stable, given a unit of blood, with improvement in her hemoglobin values, and repeat hemoglobin lab after that showed an up trending hemoglobin again. She was also started on antibiotics for possible perforation overnight per the recommendations of the general surgeon but these could be stopped after discharge and given CT results. The following morning she had no abdominal pain, and had had a normal brown bowel movement. She was tolerating a diet without issue. She was discharged home and will follow-up with surgery for final colonoscopy results. Time Spent with Patient Time spent: Greater than 30 minutes Exam Vital Signs (past 8 hours): - 06/10/24 04:20 06/10/24 04:20 06/10/24 08:00 Temperature 98.8 F 98.0 F Pulse Rate 69 88 Respiratory Rate 18 17 Blood Pressure 111/51 L 123/42 L Pulse Oximetry 94 94 98 Oxygen Flow Rate 0 Oxygen Delivery Method Room Air Oxygen Flow Rate 0 Narrative Exam Narrative: Physical Exam: GENERAL: The patient is not in any acute distressed. Awake and alert. HEENT: Nonicteric sclerae, PERRLA, EOMI. Oropharynx clear. Moist mucous membranes. Conjunctivae appear well perfused. HEART: Regular rate and rhythm without murmurs. No lower extremities edema. LUNGS: Clear to auscultation bilaterally. No wheezing, crackles or rhonchi ABDOMEN: Soft, positive bowel sounds, nontender. SKIN: No rash, no excessive bruising, petechiae, or purpura. NEUROLOGIC: AxO x 3. Cranial nerves II-XII intact without motor/sensory deficit. Objective Labs 06/10/24 06:20 06/10/24 06:20 Labs: Laboratory Results - last 24 hr 06/09/24 06/09/24 06/09/24 13:10 15:30 20:55 WBC 6.7 RBC 2.84 L Hgb 8.0 L 7.2 L Hct 25.0 L 22.3 L MCV 78.5 L MCH 25.2 L MCHC 32.2 RDW 20.1 H Plt Count 330 Neut % (Auto) 69.4 Lymph % (Auto) 17.2 L [place] % (Auto) 10.6 Eos % (Auto) 2.3 Baso % (Auto) 0.5 Neut # (Auto) 4600 Lymph # (Auto) 1100 [place] # (Auto) 700 Eos # (Auto) 200 Baso # (Auto) 0 RBC Morphology See below Anisocytosis 2+ H Sodium 135 L Potassium 3.6 Chloride 106 Carbon Dioxide 20 L BUN 16 Creatinine 0.89 Estimated GFR > 60 BUN/Creatinine Ratio 18.0 Glucose 68 L Calcium 8.1 L Magnesium Total Bilirubin 0.3 AST 33 ALT 20 Alkaline Phosphatase 64 Total Protein 5.8 L Albumin 2.7 L Globulin 3.1 Albumin/Globulin Ratio 0.9 L Carcinoembryonic Ag 11.0 H Blood Type O Positive Antibody Screen Negative Crossmatch See Detail 06/10/24 06/10/24 01:50 06:20 WBC 7.4 RBC 3.28 L Hgb 8.5 L 8.6 L Hct 26.5 L 26.7 L MCV 81.4 MCH 26.3 MCHC 32.4 RDW 20.3 H Plt Count 328 Neut % (Auto) 64.4 Lymph % (Auto) 18.6 L [place] % (Auto) 11.5 Eos % (Auto) 4.8 H Baso % (Auto) 0.7 Neut # (Auto) 4800 Lymph # (Auto) 1400 [place] # (Auto) 900 Eos # (Auto) 400 Baso # (Auto) 100 RBC Morphology Not Reportable Anisocytosis 2+ H Sodium 137 Potassium 3.8 Chloride 111 H Carbon Dioxide 15 L BUN 14 Creatinine 0.93 Estimated GFR > 60 BUN/Creatinine Ratio 15.1 Glucose 40 L* Calcium 7.8 L Magnesium 1.9 Total Bilirubin AST ALT Alkaline Phosphatase Total Protein Albumin Globulin Albumin/Globulin Ratio Carcinoembryonic Ag Blood Type Antibody Screen Crossmatch [facility] Medical History (Updated 06/11/24 @ 00:01 by ) Osteoporosis Gastroesophageal reflux disease Hyperlipidemia Hypertension Local recurrence of colon cancer Colon cancer Surgical History History of tonsillectomy History of partial colectomy History of colectomy Family History Brother Cancer Social History household members: spouse Smoking Status: Former smoker alcohol intake: current Discharge Plan Discharge Plan Patient Disposition: Home Provider Discharge Comment: You were admitted to the hospital with concern for GI bleeding. Continue to take oral iron, recommend stopping the aspirin. Discharge orders & Medications Discharge Orders: Discharge (Order); Ordered 06/10/24 Ordered By: Chong Francisco Prescriptions: Continued sodium,potassium,mag sulfates [Suprep Bowel Prep Kit] 17.5-3.13-1.6 gram recon soln See Rx Instructions PO .COMPLEX Qty: 354 0RF Rx Instructions: take as directed by Physician atorvastatin 80 mg Tablet 80 mg PO DAILY diltiazem HCl 180 mg Capsule,Extended Release 24 Hr 180 mg PO DAILY hydrochlorothiazide 25 mg Tablet 25 mg PO DAILY Discontinued aspirin 325 mg Tablet 325 mg PO DAILY Follow up/Referrals: Christi Ascencio MD [Primary Care Provider] - Diet/Activity/Treatments Diet: Diet as Tolerated and Regular Activity: As tolerated no restrictions Visit Report/Discharge Packet Instructions: DI for Colon Polypectomy, Gastrointestinal Bleeding Stand Alone Forms: Patient Portal/API, Stroke Signs & Symptoms, Colonoscopy Result: [facility] Surg Discharge Data Primary Care Provider: Christi Ascencio Attending Provider: Lien Braxton VTE Deep Vein Thrombosis/Pulmonary Embolism Present on Admission: No
[2024-06-10 09:47] VITALS: O2SAT 96
--- NOTE | 2024-06-10 13:56 | CM.DANOTE ---
Initial DCP Assessment Note Pt is a 84 yo female, resident of [place], admitted OBS overnight for GI bleed after her colonoscopy, PMG includes colon cancer. PCP: Christi Ascencio Payer: STACI/Rose Brady Reviewed chart, pt discussed in multidisciplinary rounds this morning. Patient has been discharged this morning. Patient lives independently with spouse and will return with assist from family. No barriers identified at this time to patient's safe discharge home w/family to assist; close outpatient f/u recommended. CM team will plan to follow clinical course closely in case any DC needs or concerns arise. CHARLIE Dunbar Discharge Planning/Care Management Discharge Assessment Start: 06/10/24 13:52 Freq: Status: Active Protocol: Document 06/10/24 13:52 ARMANDO (Rec: 06/10/24 13:56 ARMANDO [id number]) Discharge Planning Assessment Assigned Staff Appraiser CHARLIE Bowman DPOA/Assigned Designee Name TAYLOR [phone]. Advance Directives? Yes Advance Directives on File No History Provided By Patient,Medical Record Prior Living Arrangements House Household Members spouse Type of transporation used prior to Drives own vehicle admit Independent with ADL's Yes Is patient alert and oriented? Yes Barriers to Discharge No Discharge Plan Home Transportation Arrangement Family Referrals Initiated None needed
--- NOTE | 2024-06-10 17:18 | PM.PN.IH.1 ---
Subjective Subjective Date Patient Seen: 06/10/24 Time Patient Seen: 11:06 Interval history: Patient overall feeling well today. Pain has been well controlled. Continues to have left upper quadrant pain. Overall she states that she feels well. Hemoglobin has remained stable at 8.5 after transfusion. Exam Vital Signs (past 8 hours): - 06/10/24 09:47 Pulse Oximetry 96 Oxygen Delivery Method Room Air Oxygen Delivery Method Room Air Oxygen Flow Rate 0 Const General: cooperative, well developed and frail appearing Orientation: alert, awake and oriented x3 HENMT Head: normal to inspection and normocephalic Eyes General: appearance normal, both eyes and all related structures Neck Neck: normal visual inspection Chest Chest: normal inspection of the chest Resp Effort & Inspection: normal respiratory effort and able to speak in complete sentences GI Inspection: normal to inspection and non-distended Palpation: No tender Percussion: normal to percussion Skin General: no rashes or lesions noted Neuro General: patient alert, patient awake and patient oriented x3 Cognition: normal cognition Speech: speech normal Extrem General: normal to inspection Psych Appearance: grossly normal Mental Status: mental status grossly normal Objective Labs 06/10/24 06:20 06/10/24 06:20 Labs: Laboratory Results - last 24 hr 06/09/24 06/10/24 06/10/24 20:55 01:50 06:20 WBC 7.4 RBC 3.28 L Hgb 8.5 L 8.6 L Hct 26.5 L 26.7 L MCV 81.4 MCH 26.3 MCHC 32.4 RDW 20.3 H Plt Count 328 Neut % (Auto) 64.4 Lymph % (Auto) 18.6 L [place] % (Auto) 11.5 Eos % (Auto) 4.8 H Baso % (Auto) 0.7 Neut # (Auto) 4800 Lymph # (Auto) 1400 [place] # (Auto) 900 Eos # (Auto) 400 Baso # (Auto) 100 RBC Morphology Not Reportable Anisocytosis 2+ H Sodium 137 Potassium 3.8 Chloride 111 H Carbon Dioxide 15 L BUN 14 Creatinine 0.93 Estimated GFR > 60 BUN/Creatinine Ratio 15.1 Glucose 40 L* Calcium 7.8 L Magnesium 1.9 Blood Type O Positive Antibody Screen Negative Crossmatch See Detail [facility] Medical History (Updated 06/10/24 @ 17:21 by Lien Braxton MD) Osteoporosis Gastroesophageal reflux disease Hyperlipidemia Hypertension Local recurrence of colon cancer Colon cancer Surgical History History of tonsillectomy History of partial colectomy History of colectomy Family History Brother Cancer Social History household members: spouse Smoking Status: Former smoker alcohol intake: current Assessment & Plan Assessment and plan (1) History of colon cancer: Status: Acute (2) Local recurrence of colon cancer: Status: Acute Assessment & Plan narrative: This is a 84-year-old woman with a history of colon cancer and hypertension who presented yesterday for outpatient diagnostic colonoscopy for anemia. Patient was found to have a large ileocolonic anastomotic mass concerning for recurrence of colon cancer. This is the patient's 3rd recurrence of colon cancer. Patient had abdominal pain postprocedure as well as anemia to 7.[address] abdomen and pelvis as well as blood transfusion. The patient was admitted subsequently. -we will follow up with the patient early next week for surgical consultation. Patient will also need oncology consultation. We reviewed her labs and her CT scan. Of note patient's CEA was 11. Patient's daughter was also informed about the findings. -discharge today and will follow up via telephone by myself on Wednesday. Time-Based Coding :: [TOTAL MINUTES] spent with patient and on the chart (including review of chart, obtaining history, exam, reviewing outside data, placing orders, documenting exam and treatment plan, and counseling patient) on [DATE]. Quality VTE Deep Vein Thrombosis/Pulmonary Embolism Present on Admission: No [facility] PROFEE Family Development Extension Specialist Document charge(s): Yes Charge Codes Subsequent inpatient/observation care: [id number]
== END 2024-06-10 11:30 | disposition home or self-care (01) ==
LOC: ENDO 06-12 09:34 → AC 06-12 09:34
PROVIDERS: Internal Medicine; Admitting Provider Surgery; PCP Internal Medicine; Referring Provider Surgery; Visit Provider Surgery
PROC: 0DJ08ZZ Inspection of Upper Intestinal Tract, Via Natural or Artificial Opening Endoscopic (ICD-10-PCS; CPT 45381; principal; 2024-06-09 13:15)
PROC: 0DJD8ZZ Inspection of Lower Intestinal Tract, Via Natural or Artificial Opening Endoscopic (ICD-10-PCS; CPT 45378; 2024-06-09 13:15)
DX: C18.9 Malignant neoplasm of colon, unspecified (principal); D50.0 Iron deficiency anemia secondary to blood loss (chronic); K21.9 Gastro-esophageal reflux disease without esophagitis; I10 Essential (primary) hypertension; E78.5 Hyperlipidemia, unspecified; Z85.038 Personal history of other malignant neoplasm of large intestine; Z90.49 Acquired absence of other specified parts of digestive tract; Z87.891 Personal history of nicotine dependence; D17.79 Benign lipomatous neoplasm of other sites; K44.9 Diaphragmatic hernia without obstruction or gangrene; D12.4 Benign neoplasm of descending colon
CPT/HCPCS: 45381; 45380; 43235; 36415; 36430; 71260; 74177; 80048; 80053; 82378; 83735; 85014; 85018; 85025; 86850; 86900; 86901; 96365; 96366; G0378; P9016; J2405; J2543; J2704; Q9967

== ENCOUNTER → 2024-06-20 07:58 | Outpatient (CLI) | payer MEDICARE, OTHER, SELFPAY ==
[2024-06-14 14:55] VITALS: BMI 20.1
--- NOTE | 2024-06-20 08:04 | DI.ECHO.S_ITS ---
[facility] : : [address] : : [place] : : [id number] : : Phone: [phone] Echocardiogram Report + + :Name: SOFIA JAMES Study Date: 06/20/2024 Height: 62.5 in: :[facility] ReadingLocation: Weight: 115 lb : : Gender: Female BSA: 1.5 m2 : :: 1940 Age: 84 yrs BP: 120/62 mmHg: :Reason For Study: ROUTINE : :Ordering Physician: GOLD, : :ROMAIN Pena MD Performed By: Sandi Rodriguez : :Referring: ROMAIN MALCOLM MD : + + Interpretation Summary The left ventricle is normal in size. The left ventricle is hyperdynamic. The ejection fraction is estimated to be 75-80%. The right ventricle is normal in size and function. A bicuspid aortic valve cannot be excluded. The aortic valve is moderately calcified. The peak aortic velocity is 3.6 m/sec. The aortic valve mean gradient is 31 mmHg. The calculated aortic valve area is 1.3 cm2. sev ratio: 0.37 There is moderate aortic stenosis. There is mild tricuspid regurgitation. The right ventricular systolic pressure is estimated to be at least 34 mmHg based on an estimated right atrial pressure of 3 mm Hg. Procedure: A two-dimensional transthoracic echocardiogram with color flow and Doppler was performed. The study quality was technically adequate. There is no prior echocardiogram noted for this patient. The patient was in sinus rhythm with heart rates between 85-89 bpm during the exam. Left Ventricle: The left ventricle is normal in size. Proximal septal thickening is noted. There is no echo evidence for significant left ventricular outflow tract obstruction. There is no thrombus. The ejection fraction is estimated to be 75-80%. The left ventricle is hyperdynamic. There are no focal wall motion abnormalities. E/E' med: 13.6 Lat Peak E' Luis: 6.0 cm/sec E/E' lat: 14.0. Right Ventricle: The right ventricle is normal in size and function. Atria: The left atrium is mildly dilated. Right atrial size is normal. There is no Doppler evidence for an interatrial shunt. Mitral Valve: There is mild to moderate mitral annular calcification. The mitral valve leaflets are mildly calcified. The mitral valve mean gradient is 2.5 mmHg. No significant mitral valve stenosis. There is no mitral regurgitation noted. Aortic Valve: A bicuspid aortic valve cannot be excluded. The aortic valve is moderately calcified. The peak aortic velocity is 3.6 m/sec. The aortic valve mean gradient is 31 mmHg. The calculated aortic valve area is 1.3 cm2. There is moderate aortic stenosis. No aortic regurgitation is present. Tricuspid Valve: The tricuspid valve leaflets are thin and pliable. There is mild tricuspid regurgitation. The right ventricular systolic pressure is estimated to be at least 34 mmHg based on an estimated right atrial pressure of 3 mm Hg. Pulmonic Valve: The pulmonic valve is not well visualized. There is no pulmonic valvular regurgitation. Great Vessels: The aortic root is normal size. The dimensions of the ascending aorta are normal. The IVC is of normal diameter and collapses greater than 50% with a sniff. This suggests a low right atrial pressure of 3 mm Hg. Pericardium/ Pleura There is no pericardial effusion. There is no pleural effusion. MMode/2D Measurements & Calculations LVIDd: 4.5 cm LVOT diam: 2.2 cm LVIDs: 2.8 cm Ao root diam: 2.9 cm FS: 37.6 % asc Aorta Diam: 3.1 cm IVSd: 0.80 cm Ao Arch Diam (Prox Trans): 1.9 cm LVPWd: 0.80 cm LV deal. diameter/BSA (cm/m^2): 2.9 LV sys. diameter/BSA (cm/m^2): 1.8 LA A2 area: 21.3 cm2 RA long axis: 5.2 cm LA A4 area: 15.5 cm2 RA area: 16.9 cm2 LA length (vol): 5.2 cm RA vol: 46.9 ml LA vol: 54.4 ml RA : 30.9 ml/m2 LA vol index: 35.7 ml/m2 IVC diam: 1.9 cm RVD1 (basal): 3.7 cm RVD2 (mid): 3.3 cm TAPSE: 1.9 cm Doppler Measurements & Calculations Ao V2 max: 361.8 cm/sec LVOT Max Ulis: 124.8 cm/sec Ao V2 mean: 249.1 cm/sec LV V1 max P.2 mmHg Ao max P.1 mmHg LV V1 VTI: 26.6 cm Ao mean P.1 mmHg KURT(I,D): 1.4 cm2 Ao V2 VTI: 72.4 cm KURT(V,D): 1.3 cm2 sev ratio: 0.37 KURT indexed to BSA (cm^2/m^2): 0.91 MV E max luis: 84.8 cm/sec TR max luis: 279.1 cm/sec MV A max luis: 90.9 cm/sec TR max P.1 mmHg MV E/A: 0.93 PA V2 max: 96.9 cm/sec Med Peak E' Luis: 6.2 cm/sec PA V2 mean: 63.6 cm/sec E/E' med: 13.6 PA mean P.9 mmHg Lat Peak E' Luis: 6.0 cm/sec PA pr(Accel): 23.8 mmHg E/E' lat: 14.0 E/e' average: 13.8 MV dec time: 0.18 sec MVA(VTI): 3.8 cm2 MV V2 mean: 75.4 cm/sec SV(LVOT): 100.6 ml MV mean P.5 mmHg MV V2 VTI: 26.6 cm Reading Physician:10:57 AM
== END ==
PROVIDERS: PCP Family Medicine; Referring Provider Family Medicine; Visit Provider Family Medicine
DX: R01.1 Cardiac murmur, unspecified (principal); I70.0 Atherosclerosis of aorta; I35.0 Nonrheumatic aortic (valve) stenosis; I07.1 Rheumatic tricuspid insufficiency
CPT/HCPCS: 93306

== ENCOUNTER 2024-06-28 09:54 | Inpatient (IN) | payer MEDICARE, OTHER, SELFPAY ==
[2024-06-14 14:55] VITALS: BMI 20.1
[2024-06-22 12:01] VITALS: BMI 21.0
[2024-06-28] VITALS (21 sets, daily range): BP systolic 107–139; BP diastolic 56–73; PULSE 71–81; RESP 16–25; TEMP 35.8–36.7; O2SAT 92–100; BMI 20.3
--- NOTE | 2024-06-28 | PATH_ITS ---
[facility] Accession Number: [id number] No. of containers..01 Tissue . 01 Material submitted: . colon - SPLENIC FLEXURE ANASTOMOSIS . 01 Diagnosis: SPLENIC FLEXURE ANASTOMSIS, PARTIAL COLECTOMY: Invasive adenocarcinoma; see cancer case summary. . . CASE SUMMARY - COLON AND RECTUM RESECTION Specimen Procedure: Other - partial colectomy. Tumor Tumor site: Colon, not otherwise specified - anastomotic site. Histologic type: Adenocarcinoma. Histologic grade: G2, moderately differentiated. Tumor size: 5.2 cm in greatest dimension. Multiple primary sites: Not applicable. Tumor extent: Invades through muscularis propria into pericolonic tissue. Macroscopic tumor perforation: Not identified. Lymphovascular invasion: Not identified. Perineural invasion: Not identified. Tumor budding score: Low. Treatment effect: No known presurgical therapy. Margins Margin status for invasive carcinoma: All margins negative for invasive carcinoma. Margin status for non-invasive tumor: All margins negative for dysplasia. Regional lymph nodes Regional lymph node status: Regional lymph nodes present. All regional lymh nodes negative for tumor. Number of lymph nodes with tumor: 0. Number of lymph nodes examined: 29. Tumor deposits: Not identified. pTNM Classification (AJCC 8th Edition) Modified classification: r pT category: pT3 pN category: pN0 Special studies: Performed on prior biopsy specimen ([id number]), with loss of MLH1 and PMS2. Subsequent studies showed MLH1 Promotor Methylation, consistent with sporadic carcinoma. [facility] 07/03/2024 1726 Local . 01 Electronically signed: . Logan Owens MD, PhD, Pathologist NPI- [id number] . 01 Gross description: . Received in formalin with two patient identifiers and splenic flexure anastomosis, is an unoriented segment of ileum (5.2 x 1.5 cm) and colon (13.3 x 3.2 cm). No appendix is identified. The serosa is rose and roughened with a firm fat covered, tattoo-inked area located distal to the ileum. The ileal margin is inked blue, the colon margin is black, and the presumed mesenteric margin is inked green. The lumen contains brown, semi-fluid fecal material. No ileocecal valve is identified. The ileum is attached to the colon with a well-healed staple line, 5.5 cm in length. A sessile mass with raised borders, 5.2 x 4.9 cm, with the proximal border of the mass abutting the anastomotic site. The mass is widely free from the margins. The mass extends through the bowel wall and jamar are identified within the mass, consistent with anastomotic site involvement. Due to the anastomosis, the anatomy is slightly distorted. The lumen is narrowed but patent. The remaining mucosa is rose and velvety with normal-appearing folds and no lesions identified. The varner average 0.2 cm thick with no diverticula identified. . Palpation reveals 30 rose lymph node candidates ranging from 0.2 to 1.1 cm in greatest dimension. . [facility] [employer] sections are submitted as follows: A1: Margins en face. A2: Mass to deepest extension. A3-A5: Mass with anastomotic site and normal mucosa. A6: Normal mucosa. A7: Two adjacent section lymph node candidates. A8: Two differentially inked bisected lymph node candidates. A9: Two differentially inked bisected lymph node candidates. A10: Five intact lymph node candidates. A11: Five intact lymph node candidates. A12: Five intact lymph node candidates. A13: Four intact lymph node candidates. A14: Five intact lymph node candidates. ([id number]) /MRV 06/30/2024 1818 Local . 01 Pathologist provided ICD-10: C18.9 . 01 CPT . 274374 Specimen Comment: A courtesy copy of this report has been sent to [facility] Pathology Performed at: [address] [id number] MD Jovanni Lott MD Phone: [phone]
[2024-06-28 11:12] LABS: Hematocrit 26.4 % (36-46); Hemoglobin 8.5 g/dL (12.0-16.0); Mean Corpuscular HGB Conc 32.3 % (30-36); Mean Corpuscular Hemoglobin 26.3 PG (26-34); Mean Corpuscular Volume 81.4 fL (80-100); Platelet Count 452 X10^3/uL (150-400); Red Blood Cell Count 3.25 X10^6/uL (4.0-5.2); Red Cell Distribution Width 22.5 % (11.6-14.8); White Blood Cell Count 7.4 X10^3/uL (4.5-11.0)
[2024-06-28] MEDS: LACTATED RINGERS 1,000 ML 42 ML IV (11:21)
[2024-06-28 11:31] LABS: Alanine Aminotransferase 32 IU/L (<35); Albumin 3.6 g/dL (3.5-5.0); Alkaline Phosphatase 66 U/L (38-126); Aspartate Aminotransferase 42 IU/L (14-36); BUN Creatinine Ratio 12.2 (6-22); Bilirubin Total 0.5 mg/dL (0.2-1.3); Blood Urea Nitrogen 11 mg/dL (7-17); Calcium 8.9 mg/dL (8.4-10.2); Carbon Dioxide 19 mmol/L (22-32); Chloride 110 mmol/L (98-107); Estimated Glomerular Filt Rate > 60 mL/min (>60); Globulin 3.6 g/dL (1.7-4.1); Glucose 82 mg/dL (80-110); HEMOLYSIS < 15 (0-50); Potassium 3.5 mmol/L (3.4-5.1); Sodium 139 mmol/L (137-145); Total Protein 7.2 g/dL (6.3-8.2)
--- NOTE | 2024-06-28 12:10 | PM.PREOP ---
Pre-operative Note Interval Note History & Physical reviewed/Exam performed by Physician: Yes Changes to H&P: No H&P completed within 30 days and has changed as indicated here:: Patient got a couple infusions of iron, and remains anemic. Will get a type and cross to transfuse potentially pre-op.
[2024-06-28] MEDS: CEFAZOLIN 2 GM/100 ML PREMIX 100 ML IV (14:25)
[2024-06-28] MEDS: metroNIDAZOLE 500 MG/100 ML PIGGYBACK 100 MG IV (14:30)
--- NOTE | 2024-06-28 14:37 | SUR.OPER ---
Supine on padded OR bed, head on pillow, arms secured on padded arm boards at <90 degrees abduction, legs uncrossed, safety belt at thigh, tape over blanket over lower legs.
[2024-06-28] MEDS: BUPIVACAINE LIPOSOME 266 MG/20 ML VIAL INJ (14:52)
[2024-06-28] MEDS: BUPIVACAINE 0.25% (PF) VIAL 30 ML INJ (14:53)
--- NOTE | 2024-06-28 16:57 | PM.OP.1 ---
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 She is anemic requiring iron infusions and blood transfusions prior to surgery Surgeon: Tae Cook Structural Steel Worker: Javier Dawn Click Yes if Unassisted: No Anesthesia Type: General Operative Notes Findings: Bulky colon mass without obvious extra colonic involvement Closure Type: primary Specimen(s): other (Transverse colon, ileocolonic anastomosis) Estimated Blood Loss (mL): 200 Blood products transfused: packed red blood cells (1 unit preop, 1 unit postop) Procedure in detail: Patient was brought to the operating room suite after consent was obtained. Time-out was performed. Patient was placed in the supine position with the arms out. General anesthesia was induced. The abdomen was prepped and draped in usual fashion. The previous midline incision was opened and there were extensive adhesions to the anterior abdominal wall. Greater than 1 hour of careful sharp enterolysis was carried out releasing anterior abdominal wall and interloop adhesions. The cancer was readily palpable near the splenic flexure of the transverse colon. The splenic flexure was mobilized with Bovie electrocautery to find a healthy segment of descending colon. The spleen was visible and not involved in the dissection. A healthy segment of ileum was identified. 75 mm staplers were fired across the healthy ileum and healthy descending colon. LigaSure was used to transect the mesentery of the middle colic vessel following along the splenic flexure. A side to side isoperistaltic anastomosis was fashioned. 75 mm stapler was fired along the anti mesenteric surface of the ileum to the anti mesenteric tenia of the descending colon the common colotomy was closed with 2 layers of silk suture. The abdomen was copiously irrigated and suctioned free. There was no spillage of stool. There was good hemostasis at the end of the case. Fascia was closed with 2-0 PDS. Skin was closed with 4-0 Monocryl and Dermabond. Patient tolerated the procedure well was transferred to PACU in stable condition for anticipated admission to a regular bed. Complications: none Post-operative Condition: stable Disposition: PACU Plan for aftercare: inpatient stay
[2024-06-28] MEDS: fentaNYL 100 MCG/2 ML INJ IV ×2 (17:41→17:55)
[2024-06-28] MEDS: ONDANSETRON 4 MG/2 ML INJ IV (17:41)
[2024-06-28] MEDS: ACETAMINOPHEN IV 1,000 MG/100 ML VIAL 400 MG IV (17:52)
--- NOTE | 2024-06-28 18:47 | PC.NURSE ---
Patient arrived from PACU at 1840 from PACU. She is very somulent and able to open eyes briefly and moan yes or no. she moans to turning for skin check. Son at bedside able to answer some questions, visiting from out of state. He states his sister will be here later this evening. She is settled in to room VSS, on 2 LNC, POST OP VS per protocol, bed alarm, call light in reach. Continuous monitoring. Reported off to oncoming shift.
[2024-06-28 20:36] LABS: Add Manual Diff / Slide Review NO; Basophils Absolute Auto 100 /uL (0-100); Basophils Percent Auto 0.6 % (0-2); Eosinophils Absolute Auto 0 /uL (0-450); Hematocrit 32.8 % (36-46); Hemoglobin 10.4 g/dL (12.0-16.0); Lymphocytes Absolute Auto 900 /uL (1100-4500); Lymphocytes Percent Auto 8.1 % (25-40); Mean Corpuscular HGB Conc 31.7 % (30-36); Mean Corpuscular Hemoglobin 26.1 PG (26-34); Mean Corpuscular Volume 82.2 fL (80-100); Monocytes Absolute Auto 700 /uL (0-900); Monocytes Percent Auto 6.3 % (3-14); Neutrophils Absolute Auto 9600 /uL (1500-7000); Platelet Count 341 X10^3/uL (150-400); Red Blood Cell Count 3.98 X10^6/uL (4.0-5.2); Red Cell Distribution Width 19.3 % (11.6-14.8); White Blood Cell Count 11.3 X10^3/uL (4.5-11.0)
[2024-06-28 20:51] LABS: BUN Creatinine Ratio 11.4 (6-22); Blood Urea Nitrogen 9 mg/dL (7-17); Calcium 9.1 mg/dL (8.4-10.2); Carbon Dioxide 21 mmol/L (22-32); Chloride 110 mmol/L (98-107); Estimated Glomerular Filt Rate > 60 mL/min (>60); Glucose 116 mg/dL (80-110); HEMOLYSIS < 15 (0-50); Magnesium 1.7 mg/dL (1.6-2.3); Potassium 3.8 mmol/L (3.4-5.1); Sodium 137 mmol/L (137-145)
[2024-06-28] MEDS: OXYCODONE IR 5 MG TABLET PO (21:02)
[2024-06-28] MEDS: HEPARIN 5,000 UNIT/ML VIAL 5000 UNIT SUBCUT (21:02)
[2024-06-28] MEDS: IBUPROFEN 400 MG TABLET PO (21:02)
[2024-06-29] VITALS (13 sets, daily range): BP systolic 94–131; BP diastolic 45–63; PULSE 77–102; RESP 18–20; TEMP 36.1–36.6; O2SAT 96–99
[2024-06-29] MEDS: IBUPROFEN 400 MG TABLET PO ×6 (02:15→21:37)
[2024-06-29] MEDS: ACETAMINOPHEN 325 MG TABLET 650 MG PO ×4 (02:15→18:23)
--- NOTE | 2024-06-29 04:13 | PC.NURSE ---
Pt has 2 U FFP ordered, Contacted Dr. Cook who stated that it was ordered by anesthesia. Per Dr. Cook he asked anesthesiologist about what they are doing with it and they said nothing.
[2024-06-29 06:16] LABS: Blood Urea Nitrogen 9 mg/dL (7-17); Calcium 8.5 mg/dL (8.4-10.2); Carbon Dioxide 21 mmol/L (22-32); Chloride 109 mmol/L (98-107); Estimated Glomerular Filt Rate > 60 mL/min (>60); Glucose 97 mg/dL (80-110); HEMOLYSIS < 15 (0-50); Potassium 3.9 mmol/L (3.4-5.1); Sodium 137 mmol/L (137-145)
[2024-06-29] MEDS: dilTIAZem CD 180 MG CAP PO (09:09)
[2024-06-29] MEDS: MAGNESIUM HYDROXIDE 30 ML UDC PO (09:09)
[2024-06-29] MEDS: ASPIRIN EC 81 MG TABLET PO (09:10)
[2024-06-29] MEDS: FERROUS SULFATE 325 MG TABLET PO (09:10)
[2024-06-29] MEDS: ATORVASTATIN 20 MG TABLET 80 MG PO (09:10)
[2024-06-29] MEDS: PANTOPRAZOLE DR 40 MG TABLET PO (09:10)
[2024-06-29] MEDS: HEPARIN 5,000 UNIT/ML VIAL 5000 UNIT SUBCUT ×2 (10:08→21:34)
[2024-06-29] MEDS: MAGNESIUM CHLORIDE 64 MG TABLET 128 MG PO (10:08)
--- NOTE | 2024-06-29 10:09 | PM.PNPO.1 ---
Subjective Subjective Date Patient Seen: 06/29/24 Time Patient Seen: 10:10 Interval history: Patient is doing well and feeling well. Slight drift in hemoglobin, but systolics remain above 100. No symptoms of lightheadedness or dizziness. Sitting up feeling well. Exam Vital Signs (past 8 hours): - 06/29/24 05:25 06/29/24 06:00 06/29/24 08:00 Temperature 97.8 F 97.7 F Pulse Rate 84 79 Pulse Rate [Orthostatic Lying] Pulse Rate [Orthostatic Sitting] Pulse Rate [Orthostatic Standing] Respiratory Rate 18 20 Blood Pressure 105/56 L 105/51 L Blood Pressure [Orthostatic Lying] Blood Pressure [Orthostatic Sitting] Blood Pressure [Orthostatic Standing] Pulse Oximetry 97 99 96 Oxygen Delivery Method Room Air Oxygen Flow Rate 0 0 06/29/24 10:06 Temperature Pulse Rate Pulse Rate [Orthostatic Lying] 79 Pulse Rate [Orthostatic Sitting] 90 Pulse Rate [Orthostatic Standing] 102 H Respiratory Rate Blood Pressure Blood Pressure [Orthostatic Lying] 105/51 L Blood Pressure [Orthostatic Sitting] 115/61 Blood Pressure [Orthostatic Standing] 106/58 L Pulse Oximetry Oxygen Delivery Method Oxygen Flow Rate Oxygen Delivery Method Room Air Oxygen Flow Rate 0 Narrative Exam Narrative: Incisions clean, dry, intact Objective Labs 06/28/24 Unknown 06/29/24 05:00 Labs: Laboratory Results - last 24 hr 06/28/24 06/28/24 06/28/24 11:46 20:29 Unknown WBC 11.3 H D 7.4 RBC 3.98 L 3.25 L Hgb 10.4 L 8.5 L Hct 32.8 L 26.4 L MCV 82.2 81.4 MCH 26.1 26.3 MCHC 31.7 32.3 RDW 19.3 H 22.5 H Plt Count 341 452 H Neut % (Auto) 85.0 H Lymph % (Auto) 8.1 L [place] % (Auto) 6.3 Eos % (Auto) 0.0 L Baso % (Auto) 0.6 Neut # (Auto) 9600 H Lymph # (Auto) 900 L [place] # (Auto) 700 Eos # (Auto) 0 Baso # (Auto) 100 Sodium 137 139 Potassium 3.8 3.5 Chloride 110 H 110 H Carbon Dioxide 21 L 19 L BUN 9 11 Creatinine 0.79 0.90 Estimated GFR > 60 > 60 BUN/Creatinine Ratio 11.4 12.2 Glucose 116 H 82 Calcium 9.1 8.9 Magnesium 1.7 Total Bilirubin 0.5 AST 42 H ALT 32 Alkaline Phosphatase 66 Total Protein 7.2 Albumin 3.6 Globulin 3.6 Albumin/Globulin Ratio 1.0 Blood Type O Positive Antibody Screen Negative Crossmatch See Detail 06/29/24 05:00 WBC RBC Hgb Hct MCV MCH MCHC RDW Plt Count Neut % (Auto) Lymph % (Auto) [place] % (Auto) Eos % (Auto) Baso % (Auto) Neut # (Auto) Lymph # (Auto) [place] # (Auto) Eos # (Auto) Baso # (Auto) Sodium 137 Potassium 3.9 Chloride 109 H Carbon Dioxide 21 L BUN 9 Creatinine 0.82 Estimated GFR > 60 BUN/Creatinine Ratio 11.0 Glucose 97 Calcium 8.5 Magnesium Total Bilirubin AST ALT Alkaline Phosphatase Total Protein Albumin Globulin Albumin/Globulin Ratio Blood Type Antibody Screen Crossmatch [facility] Medical History (Updated 06/23/24 @ 07:09 by Chloe Purdy, RN) Age related osteoporosis Aortic stenosis Heart murmur Iron (Fe) deficiency anemia Phlebitis Osteoporosis Gastroesophageal reflux disease Hyperlipidemia Hypertension Local recurrence of colon cancer Colon cancer Surgical History (Updated 06/22/24 @ 14:29 by Chloe Purdy, RN) H/O cataract extraction History of tonsillectomy History of partial colectomy (2003) History of colectomy (2006) Family History Brother Cancer Social History household members: spouse Smoking Status: Former smoker alcohol intake: current Assessment & Plan Post-op Postoperative Procedures: Procedures Operation Date: 06/28/24 11:45 Actual Procedure Side Surgeon p open partial colectomy Tae Cook MD Postoperative day: 1 Postoperative status: doing well and anemia Postoperative status narrative: Patient was receiving iron infusions and blood preop. We will order another iron infusion today. Postoperative plan: see orders Time Spent With Patient Time with patient: less than 15 minutes Quality VTE Deep Vein Thrombosis/Pulmonary Embolism Present on Admission: No
[2024-06-29] MEDS: SODIUM FERRIC GLUCONAT/SUCROSE 125 MG in SODIUM CHLORIDE 0.9% 100 ML 110 MG IV (10:59)
--- NOTE | 2024-06-29 11:14 | PC.NURSE ---
Addendum entered by Jamia Billings R.N. 06/29/24 19:25: Patient's IV infiltrated when IV iron was running this AM. Removed the IV and RN Tani stated a new one in the other arm. Small bruise noted. Patient called this RN into room this evening and stated that her arm looks worse. Large area of discoloration and slight swelling. Given ice pack, patient denied pain or discomfort. Notified charge accounts audit clerk Erika and notified NOC RN Marianne. Marianne and this RN took photo of the arm and Marianne will post picture in wound photo note this evening. Original Note: Day shift: Notified MD Cook that patient did not receive CBC this AM and most recent H&H is trending down. MD Cook stated that as long as patient isn't symptomatic and vitals remain stable, ok to wait on CBC until scheduled this evening. This RN also asked MD Cook about heparin dose this AM, given patient's low H&H and propensity for needing blood. MD Cook stated I can fix bleeding, I can't fix clots. Gave heparin as ordered. Aided patient in ambulating to the chair. She denied dizziness - checked orthostatics - they were negative. Removed Russ catheter this AM. Patient reporting very mild abdominal pain and ambulated with 1PA + FWW. Will continue to monitor.
--- NOTE | 2024-06-29 11:50 | OT.IP.EVAL ---
Current Diagnoses Malignant neoplasm of colon, unspecified (06/28/24) Surgery Performed Operation Date: 06/28/24 11:45 Actual Procedures p open partial colectomy - Tae Cook MD Past Medical History (Last Updated 06/23/24 @ 07:09 by Chloe Purdy, RN) Age related osteoporosis Aortic stenosis Colon cancer Gastroesophageal reflux disease Heart murmur Hyperlipidemia Hypertension Iron (Fe) deficiency anemia Local recurrence of colon cancer Osteoporosis Phlebitis Surgical History (Last Updated 06/22/24 @ 14:29 by Chloe Purdy, RN) H/O cataract extraction History of colectomy (2006) History of partial colectomy (2003) History of tonsillectomy Occupational Therapy Inpatient Evaluation/Re-Eval M1 PT/OT-IP Prior Functional Status Start: 06/29/24 12:14 Freq: NEEDED Status: Active Protocol: Document 06/29/24 12:15 [facility] (Rec: 06/29/24 12:34 [facility] [id number]) Medical Review Prior Functional Status Communication I Mobility and Gait I Activities of Daily Living and IADL's I and takes care of her . Social History Household Members spouse Living Arrangements House Number of Floors (Floors) Two Floors Number of Stairs To Enter/Railing? 4 steps with right rail from the garage. 4 steps form the front and use of bushes. Pt has 13 steps - 4 steps with right rail, landing, and another 9 steps with right rail to get to the bed room. Home Environment Standard Height Toilet,Walk in Shower Additional Social History Comment Pt has a tub in which prior took baths. M2 OT-IP Current Condition Start: 06/29/24 12:14 Freq: Status: Active Protocol: Document 06/29/24 12:15 [facility] (Rec: 06/29/24 12:34 [facility] [id number]) Occupational Therapy Current Condition Current Condition Evaluation Date 06/29/24 Treatment Diagnosis S/P open partial colectomy Diagnosis Onset Date 06/28/24 Post Operative Precautions Abdominal Surgery Precautions Log Roll,Lifting Restrictions, Gait Belt above Incisional Area M3 OT- IP Subjective and Pain Start: 06/29/24 12:14 Freq: Status: Active Protocol: Document 06/29/24 12:15 [facility] (Rec: 06/29/24 12:34 [facility] [id number]) OT- Subjective Occupational Therapy Visit Type Type Initial Evaluation Visit Start Time 11:25 Visit Stop Time 11:50 Occupational Therapy Visit Comments Patient Comments Pt agreed to get up for oral care needs. Notified nursing of IV site leaking, readness, and swelling. Patient/Caregiver Goals To go home. OT Pain Assessment Pain When Pain Assessed At Rest Pain Present Pain Present Pain Reported Location abdomen Intensity 1 M4 OT- IP ADL's Start: 06/29/24 12:14 Freq: Status: Active Protocol: Document 06/29/24 12:15 [facility] (Rec: 06/29/24 12:34 [facility] [id number]) OT [id number] Comments OT Self-Feeding Comments Not at meal time. OT ADL-Grooming General Evaluation Grooming Ability Standby Assistance Areas Needing Assistance Retrieving/Set-up of Grooming Items Comments OT Grooming Comments Able to do while standing. OT ADL-Oral Care General Eval Oral Care Ability Independent Comments Oral Care Comments Able to do while standing at ths sink. OT ADL-Dressing Comments OT Dressing Comments Not performed. Pt may benefit from LB dressing equipment. OT ADL-Toileting Comments OT Toileting Comments Pt not having to go at this time. OT ADL-Bathing Comments OT Bathing Comments Pt may benefit from a shower chair, however pt states her shower stall is very small. M5 OT- IP IADL's Start: 06/29/24 12:14 Freq: Status: Active Protocol: Document 06/29/24 12:15 [facility] (Rec: 06/29/24 12:34 [facility] [id number]) OT-Instrumental Activities of Daily Living Home Safety Awareness Awareness of Need for Assistance at Home Good Awareness Ability to Problem Solve Emergency Able to Problem Solve Situations Medication Management Medication Management No Deficits Identified Money Management Money Management No Deficits Identified Meal Preparation Meal Preparation Comments Pt would benefit from assist. Tallier Tallier Comments Pt will benefit from assist. M6 OT- IP Functional Cognition Start: 06/29/24 12:14 Freq: Status: Active Protocol: Document 06/29/24 12:15 [facility] (Rec: 06/29/24 12:34 [facility] [id number]) Cognitive Factors Limiting Selfcare Function Cognitive Ability Level of Alertness Alert Patient Orientation Name,Age,Birthday,Month,Date, Year,Day of Week,Place, Situation Attention Span Ability Capable of Focused Attention, Capable of Sustained Attention Ability to Follow Commands Able to Follow One Step Commands Cognitive Comments Cognitive Assessment Comments Pt able to follow commands for ADL and mobility needs. OT- Vision and Hearing OT- Hearing Assessment OT- Hearing Assessment Hearing Impaired,Use of Hearing Aids OT- Vision Assessment Visual Acuity Glasses For Reading Visual Attentiveness WFL Occular Pursuits WFL Vision Assessment Comments Hearing aids not in. M7 OT- IP Mobility and Balance Start: 06/29/24 12:14 Freq: Status: Active Protocol: Document 06/29/24 12:15 [facility] (Rec: 06/29/24 12:34 [facility] [id number]) OT- Bed Mobility Assessment Supine to Sit Supine to Sit Assist Contact Guard Assistance, Bedrails Sit to Supine Sit to Supine Assist Contact Guard Assistance, Bedrails OT-Transfer Assessment Sit to and From Stand Sit to and from Stand Contact Guard Assistance Transfers Transfer Ability Contact Guard Assistance Technique Transfer Destination Bed,Chair Transfer Technique Stand Step Pivot Devices Transfer Assistive Devices Gait Belt,Front Wheeled Walker Comments Mobility Comments Educated pt on log rolling for her abd. precautions. OT- Balance Assessment Sitting Balance and Reactions Static Sitting Balance Ability Good Dynamic Sitting Balance Ability Good Standing Balance and Reactions Static Standing Balance Ability Fair Dynamic Standing Balance Ability Poor Comments Other Balance Tests/Deviations/Treatment Pt able to come to stand with : CGA. CGA/KASH as a little unsteady on her feet and needing assist for balance by holding the gait belt. At this time best to use FWW. M8 OT- IP Objective Assessments Start: 06/29/24 12:14 Freq: Status: Active Protocol: Document 06/29/24 12:15 [facility] (Rec: 06/29/24 12:34 [facility] [id number]) OT Strength Comments Strength Comments NT due to ABD sx, at least 3+/5 for BUE. M9 OT- IP Assessment and Plan Start: 06/29/24 12:14 Freq: Status: Active Protocol: Document 06/29/24 12:15 [facility] (Rec: 06/29/24 12:34 [facility] [id number]) OT Summary Assessment and Plan Potential Rehabilitation Potential Good Analytic Complexity at Evaluation Moderate Summary OT Impairments Pain,Balance,Functional Mobility,Grooming,Dressing, Toileting,Bathing,Toilet Transfers,Shower Transfers, Activity Tolerance Progress Towards Goals Slow Progress due to Medical Issues,Slow Progress due to Activity Tolerance Assessment Summary Pt MOD complexity and main barriers are steps, decreased activity tolerance, and pain. Pt doing well and would benefit from assist at home as pt takes care of her . Pt states her daughter who lives 10 minutes away would be available to assist. Pt to go home with assist when medically stable. Goals Self-Feeding Goal Independent Grooming Goal Independent Dressing Goal Independent Toileting Goal Independent Bathing Goal Standby Assistance Toilet Transfer Goal Independent Shower Transfer Goal Independent Days to Meet Goals 5 Frequency of Treatment Other frequency 5x/week Treatment Plan OT Treatment Plan ADL Training,Functional Mobility,Patient/Family Education,Discharge Planning Discharge Recommendations OT Discharge Recommendations Home with Assistance Transportation Needs at Discharge Private Vehicle
--- NOTE | 2024-06-29 12:36 | OT.IP.EVAL ---
Current Diagnoses Malignant neoplasm of colon, unspecified (06/28/24) Surgery Performed Operation Date: 06/28/24 11:45 Actual Procedures p open partial colectomy - Tae Cook MD Past Medical History (Last Updated 06/23/24 @ 07:09 by Chloe Purdy, RN) Age related osteoporosis Aortic stenosis Colon cancer Gastroesophageal reflux disease Heart murmur Hyperlipidemia Hypertension Iron (Fe) deficiency anemia Local recurrence of colon cancer Osteoporosis Phlebitis Surgical History (Last Updated 06/22/24 @ 14:29 by Chloe Purdy, RN) H/O cataract extraction History of colectomy (2006) History of partial colectomy (2003) History of tonsillectomy Occupational Therapy Inpatient Evaluation/Re-Eval M1 PT/OT-IP Prior Functional Status Start: 06/29/24 12:14 Freq: NEEDED Status: Active Protocol: Document 06/29/24 12:15 [facility] (Rec: 06/29/24 12:34 [facility] [id number]) Medical Review Prior Functional Status Communication I Mobility and Gait I Activities of Daily Living and IADL's I and takes care of her . Social History Household Members spouse Living Arrangements House Number of Floors (Floors) Two Floors Number of Stairs To Enter/Railing? 4 steps with right rail from the garage. 4 steps form the front and use of bushes. Pt has 13 steps - 4 steps with right rail, landing, and another 9 steps with right rail to get to the bed room. Home Environment Standard Height Toilet,Walk in Shower Additional Social History Comment Pt has a tub in which prior took baths. M2 OT-IP Current Condition Start: 06/29/24 12:14 Freq: Status: Active Protocol: Document 06/29/24 12:15 [facility] (Rec: 06/29/24 12:34 [facility] [id number]) Occupational Therapy Current Condition Current Condition Evaluation Date 06/29/24 Treatment Diagnosis S/P open partial colectomy Diagnosis Onset Date 06/28/24 Post Operative Precautions Abdominal Surgery Precautions Log Roll,Lifting Restrictions, Gait Belt above Incisional Area M3 OT- IP Subjective and Pain Start: 06/29/24 12:14 Freq: Status: Active Protocol: Document 06/29/24 12:15 [facility] (Rec: 06/29/24 12:34 [facility] [id number]) OT- Subjective Occupational Therapy Visit Type Type Initial Evaluation Visit Start Time 11:25 Visit Stop Time 11:50 Occupational Therapy Visit Comments Patient Comments Pt agreed to get up for oral care needs. Notified nursing of IV site leaking, readness, and swelling. Patient/Caregiver Goals To go home. OT Pain Assessment Pain When Pain Assessed At Rest Pain Present Pain Present Pain Reported Location abdomen Intensity 1 M4 OT- IP ADL's Start: 06/29/24 12:14 Freq: Status: Active Protocol: Document 06/29/24 12:15 [facility] (Rec: 06/29/24 12:34 [facility] [id number]) OT [id number] Comments OT Self-Feeding Comments Not at meal time. OT ADL-Grooming General Evaluation Grooming Ability Standby Assistance Areas Needing Assistance Retrieving/Set-up of Grooming Items Comments OT Grooming Comments Able to do while standing. OT ADL-Oral Care General Eval Oral Care Ability Independent Comments Oral Care Comments Able to do while standing at ths sink. OT ADL-Dressing Comments OT Dressing Comments Not performed. Pt may benefit from LB dressing equipment. OT ADL-Toileting Comments OT Toileting Comments Pt not having to go at this time. OT ADL-Bathing Comments OT Bathing Comments Pt may benefit from a shower chair, however pt states her shower stall is very small. M5 OT- IP IADL's Start: 06/29/24 12:14 Freq: Status: Active Protocol: Document 06/29/24 12:15 [facility] (Rec: 06/29/24 12:34 [facility] [id number]) OT-Instrumental Activities of Daily Living Home Safety Awareness Awareness of Need for Assistance at Home Good Awareness Ability to Problem Solve Emergency Able to Problem Solve Situations Medication Management Medication Management No Deficits Identified Money Management Money Management No Deficits Identified Meal Preparation Meal Preparation Comments Pt would benefit from assist. Antenna Engineer Antenna Engineer Comments Pt will benefit from assist. M6 OT- IP Functional Cognition Start: 06/29/24 12:14 Freq: Status: Active Protocol: Document 06/29/24 12:15 [facility] (Rec: 06/29/24 12:34 [facility] [id number]) Cognitive Factors Limiting Selfcare Function Cognitive Ability Level of Alertness Alert Patient Orientation Name,Age,Birthday,Month,Date, Year,Day of Week,Place, Situation Attention Span Ability Capable of Focused Attention, Capable of Sustained Attention Ability to Follow Commands Able to Follow One Step Commands Cognitive Comments Cognitive Assessment Comments Pt able to follow commands for ADL and mobility needs. OT- Vision and Hearing OT- Hearing Assessment OT- Hearing Assessment Hearing Impaired,Use of Hearing Aids OT- Vision Assessment Visual Acuity Glasses For Reading Visual Attentiveness WFL Occular Pursuits WFL Vision Assessment Comments Hearing aids not in. M7 OT- IP Mobility and Balance Start: 06/29/24 12:14 Freq: Status: Active Protocol: Document 06/29/24 12:15 [facility] (Rec: 06/29/24 12:34 [facility] [id number]) OT- Bed Mobility Assessment Supine to Sit Supine to Sit Assist Contact Guard Assistance, Bedrails Sit to Supine Sit to Supine Assist Contact Guard Assistance, Bedrails OT-Transfer Assessment Sit to and From Stand Sit to and from Stand Contact Guard Assistance Transfers Transfer Ability Contact Guard Assistance Technique Transfer Destination Bed,Chair Transfer Technique Stand Step Pivot Devices Transfer Assistive Devices Gait Belt,Front Wheeled Walker Comments Mobility Comments Educated pt on log rolling for her abd. precautions. OT- Balance Assessment Sitting Balance and Reactions Static Sitting Balance Ability Good Dynamic Sitting Balance Ability Good Standing Balance and Reactions Static Standing Balance Ability Fair Dynamic Standing Balance Ability Poor Comments Other Balance Tests/Deviations/Treatment Pt able to come to stand with : CGA. CGA/KASH as a little unsteady on her feet and needing assist for balance by holding the gait belt. At this time best to use FWW. M8 OT- IP Objective Assessments Start: 06/29/24 12:14 Freq: Status: Active Protocol: Document 06/29/24 12:15 [facility] (Rec: 06/29/24 12:34 [facility] [id number]) OT Strength Comments Strength Comments NT due to ABD sx, at leat 3+/5 for BUE. M9 OT- IP Assessment and Plan Start: 06/29/24 12:14 Freq: Status: Active Protocol: Document 06/29/24 12:15 [facility] (Rec: 06/29/24 12:34 [facility] [id number]) OT Summary Assessment and Plan Potential Rehabilitation Potential Good Analytic Complexity at Evaluation Moderate Summary OT Impairments Pain,Balance,Functional Mobility,Grooming,Dressing, Toileting,Bathing,Toilet Transfers,Shower Transfers, Activity Tolerance Progress Towards Goals Slow Progress due to Medical Issues,Slow Progress due to Activity Tolerance Assessment Summary Pt MOD complexity and main barriers are steps, decreased activity tolerance, and pain. Pt doing well and would benefit from asisst at home as pt takes care of her . Pt states her daugther who lives 10 minutes away would be available to asisst. Pt to go home with assist when medically stable. Goals Self-Feeding Goal Independent Grooming Goal Independent Dressing Goal Independent Toileting Goal Independent Bathing Goal Standby Assistance Toilet Transfer Goal Independent Shower Transfer Goal Independent Days to Meet Goals 5 Frequency of Treatment Other frequency 5x/week Treatment Plan OT Treatment Plan ADL Training,Functional Mobility,Patient/Family Education,Discharge Planning Discharge Recommendations OT Discharge Recommendations Home with Assistance Transportation Needs at Discharge Private Vehicle
--- NOTE | 2024-06-29 13:21 | PT.IIE ---
Current Diagnoses Malignant neoplasm of colon, unspecified (06/28/24) Surgery Performed Operation Date: 06/28/24 11:45 Actual Procedures p open partial colectomy - Tae Cook MD Surgical History (Last Updated 06/22/24 @ 14:29 by Chloe Purdy, RN) H/O cataract extraction History of colectomy (2006) History of partial colectomy (2003) History of tonsillectomy Medical History (Last Updated 06/23/24 @ 07:09 by Chloe Purdy, RN) Age related osteoporosis Aortic stenosis Colon cancer Gastroesophageal reflux disease Heart murmur Hyperlipidemia Hypertension Iron (Fe) deficiency anemia Local recurrence of colon cancer Osteoporosis Phlebitis Physical Therapy Inpatient Evaluation/Re-Eval M1 PT/OT-IP Prior Functional Status Start: 06/29/24 12:14 Freq: NEEDED Status: Active Protocol: Document 06/29/24 13:21 [facility] (Rec: 06/29/24 13:45 [facility] [id number]) Medical Review Prior Functional Status Medical History Reviewed Yes Communication Independent she reports hx of swallowing difficulty, things get stuck in her throat sometimes Mobility and Gait Independent without a device, can go up/down her stairs at home, she likes to garden Activities of Daily Living and IADL's Independent and takes care of her . Social History Household Members spouse Living Arrangements House Number of Floors (Floors) Two Floors Number of Stairs To Enter/Railing? 4 steps with right rail from the garage. 4 steps form the front and use of bushes. Pt has 13 steps - 4 steps with right rail, landing, and another 9 steps with right rail to get to the bed room. Home Environment Standard Height Toilet,Walk in Shower,Tub/Shower Employment Status Retired Additional Social History Comment Pt has a tub in which prior took baths. M2 PT-IP Current Condition Start: 06/29/24 13:28 Freq: NEEDED Status: Active Protocol: Document 06/29/24 13:21 [facility] (Rec: 06/29/24 13:45 [facility] [id number]) Physical Therapy Current Condition Current Condition Evaluation Date 06/29/24 Treatment Diagnosis partial colectomy, impaired gait Onset Date 06/28/24 M3 PT-IP Subjective Start: 06/29/24 13:28 Freq: NEEDED Status: Active Protocol: Document 06/29/24 13:21 [facility] (Rec: 06/29/24 13:45 [facility] [id number]) Subjective Physical Therapy Visit Type Type Initial Evaluation Visit Start Time 13:05 Visit Stop Time 13:21 Notes 16 minutes Number of RUSTIC FENCE BUILDER Visits 0 Physical Therapy Visit Comments Patient Comments She reports she is sore but doing okay today. She reports a piece of chicken got stuck when trying to eat lunch so she doesn't want to try to eat any more. She indicates she is not hungry. She reports no concerns about discharging home from the hospital. Patient Goals Discharge home Therapy Pain Assessment Pain When Pain Assessed During Mobility Pain Present Pain Present Pain Reported Location abdomen Intensity 3 Scale Used Numeric (0 - 10) Description Aching,Tender,With Movement Pain Behaviors Guarding Pain Management Techniques Re-positioning M4 PT-IP Mobility and Gait Start: 06/29/24 13:28 Freq: NEEDED Status: Active Protocol: Document 06/29/24 13:21 [facility] (Rec: 06/29/24 13:45 [facility] [id number]) PT-Transfer Assessment Sit to and From Stand Sit to and from Stand Standby Assistance,Use of Upper Extremities Equipment Transfer Assistive Device None Transfers Transfer Destination Chair Transfer Technique Stand Step Pivot Transfer Ability Level of Assist Standby Assistance,Use of Upper Extremities Comments Mobility Comments Pt up in the recliner and does not want to go back to bed at this time. After gait she was positioned in the recliner for comfort with her feet elevated. Gait Assessment Gait Gait Assistance Required: Minimum Assistance Distance (Feet) 400 Assistive Devices Assistive Device None Gait Deviations General Gait Pattern Decreased Stride Length Factors Limiting Gait Function Factors Limiting Gait Function Decreased Activity Tolerance, Poor Balance Comments Gait Comments She used hand held assist for gait and intermittently reaches the other hand out for wall rails. Pt did not want to use the FWW for gait in the ibarra this visit. She presents with a mild decrease in standing balance during gait that could be managed with hand held assist. Stair Climbing Assessment Evaluation Level of Assist On Stairs Standby Assistance Devices Stair Climbing Assistive Devices Left Railing,Right Railing Technique/Endurance Stair Climbing Direction Ascend and Descend Stair Climbing Technique Step to Step Number of Steps Climbed 3 Query Text: Stair Climbing Set # Repetitions (reps) 1 Comments Stair Climbing Comments no increase in abdominal pain reported with stairs at this time, good tolerance for stair training PT-Balance Assessment Sitting Balance and Reactions Static Sitting Balance Ability Normal Dynamic Sitting Balance Ability Normal Standing Balance and Reactions Static Standing Balance Ability Good Dynamic Standing Balance Ability Fair M5 PT-IP Objective Assessments Start: 06/29/24 13:28 Freq: NEEDED Status: Active Protocol: Document 06/29/24 13:21 [facility] (Rec: 06/29/24 13:45 [facility] [id number]) Orientation Orientation/Cognition Level of Alertness Alert Orientation Name,Age,Birthday,Month,Date, Year,Day of Week,Place, Situation Language Function Ability No Deficits Noted Safety Awareness Understands Safety Issues Memory Description No Deficits Noted Gross Range of Motion Upper Extremity ROM Assessment Within Functional Limits Impairments arthritic changes in fingers with left hand more than right Lower Extremity ROM Assessment Within Functional Limits Strength Upper Extremity Strength Assessment Within Functional Limits Lower Extremity Strength Assessment Within Functional Limits Coordination Assessment Gross Coordination Gross Coordination WNL Sensation Assessment Sensation Gross Sensation WNL Muscle Tone Muscle Tone WNL Yes M6 PT-IP Treatment Start: 06/29/24 13:28 Freq: NEEDED Status: Active Protocol: Document 06/29/24 13:21 [facility] (Rec: 06/29/24 13:45 [facility] [id number]) Physical Therapy Treatment Education Education Provided Safety M7 PT-IP Assessment and Plan Start: 06/29/24 13:28 Freq: NEEDED Status: Active Protocol: Document 06/29/24 13:21 [facility] (Rec: 06/29/24 13:45 DL [id number]) PT Summary Assessment and Plan Potential Rehabilitation Potential Excellent Status of Condition at Evaluation Evolving Summary Impairments Pain,Strength,Balance,Bed Mobility,Transfers,Gait, Activity Tolerance Assessment Summary Zina is alert and up in the recliner this visit. She underwent open partial colectomy 06/28/24. She has a history of re-occurring colon cancer. She has had at least two prior colon resections in the past. She is independent at baseline. This visit she presents with mild decrease in standing balance that effects her gait. She needed hand held assist to manage her balance during gait. She is reluctant to use a fWW today. Stair training was initiated today with good tolerance. She has a two story house at home . Pt remains up in the recliner this visit per her request. Will continue to assess if she will need an assistive device for gait at discharge. Goals Bed Mobility Goal Independent Transfer Goal Independent Gait Goal Independent Gait Distance 300 ft Days to Meet Goals 2 Frequency of Treatment Frequency Of Treatment Once a Day Treatment Plan Physical Therapy Treatment Plan Bed Mobility Training,Transfer Training,Gait Training, Therapeutic Exercise,Balance Retraining,Post Op Education, Discharge Planning Other Recommendations and Next Treatment anticipate 1-2 follow-up Focus visits needed, will continue to assess if assistive device needed for home use at discharge Precautions Abdominal Surgery Precautions Log Roll,Lifting Restrictions, Gait Belt above Incisional Area Recommendations To Nursing Amount of Assist Needed 1 Person Assist Discharge Recommendations PT Discharge Recommendations Home with Assistance Other Discharge Recommendations continue to assess if assistive device needed Transportation Needs at Discharge Private Vehicle - PT assist 1P
[2024-06-29 14:27] LABS: Hemoglobin 9.9 g/dL (12.0-16.0)
[2024-06-29 14:28] LABS: Hematocrit 29.8 % (36-46)
--- NOTE | 2024-06-29 15:36 | DIET.CONS ---
Dietary Consultation Note Admission Date: 06/28/2024 09:54 Assessment: 84 y F admitted post-op open partial colectomy. Nutrition consulted for weight loss. Met with pt at bedside this morning who reports good appetite now, Diet was advanced per surgery for lunch. Pt reports over the last month having lower appetite than usual eating about half her usual portions. Additionally she was doing 2 protein shakes, 1 Ensure Max and a Boost per recc from surgery. Usual diet recall: within last month, pt was doing 50% of this: B-half of breakfast sandwich S-half of deli sandwich D-homemade meal with meat, rice/potatoes, and veg Nutrition focused physcial exam: -severe muscle mass loss in temples and interossoeus, moderate loss in deltoid, pectoralis major, trapezius -severe subcutaneous fat loss in buccal and orbital fat pads Ht: 157.48 cm Wt: 50.4 kg BMI: 20.3 UBW: 52.617 kg on 05/26/24 (-5% weight loss in 1 month, severe), pt reports UBW is 120 lb Last BM: 06/29/24 (06/29/24 15:07) MNA: 11 Marcus Score: 19 Diet: 06/29/24 Lunch Soft,Low Fiber (Low residue) Diet Diet Modifications: Food Texture: Level 7 - Regular Liquid Consistency: Level 0 - Thin Labs: RBC 3.25 X10^6/uL (4.0-5.2) L 06/28/24 Unknown Hgb 9.9 g/dL (12.0-16.0) L 06/29/24 14:18 Hct 29.8 % (36-46) L 06/29/24 14:18 Creatinine 0.82 mg/dL (0.52-1.04) 06/29/24 05:00 Nutrition Diagnosis: Severe acute Protein Calorie Malnutrition r/t alterations in GI tract/structure as evidenced by recurrent colon cancer, 5% weight loss within 1 month (severe) and moderate to severe muscle mass wasting (temporalis, deltoid, interosseous), severe subcutaneous fat loss (buccal and orbital fat pads), <75% of estimated energy needs per diet recall for 1 month (moderate) and BMI underweight for age (20.3) Interventions: -ONS BID -Provided pt with handout on recommended Ensure/Boost option when home. Pt open to continuing them BID until PO intakes return to normal/weight stabilizes at 120-125 lb EER: 1500 kcals (30 kcals/kg) 65-75 g protein (1.25-1.5 g/kg per s/p surgery and PCM) Monitoring/Evaluations: PO intakes/tolerance Electronically Signed by: Chasidy Purdy 06/29/24 15:36 Clinical Dietitian [address] [id number]
--- NOTE | 2024-06-29 15:38 | P.DS_ITS ---
History of Present Illness History of Present Illness Chief complaint: INPT Discharge Providers Provider Date of admission: 06/28/24 09:54 Discharge Date: 06/30/24 Primary care physician: Aston Garcia MD Consults: 06/28/24 18:40 Consult to Discharge Planning Routine Comment: Consult to Occupational Therapy Evaluate & Treat Comment: Physician Instructions: Evaluate and treat Consult to Physical Therapy Evaluate & Treat Comment: Physician Instructions: Evaluate and Treat 06/28/24 19:49 Consult to Dietitian, Adult Routine Comment: Reason For Exam: weight loss Discharge provider: Tae Cook MD Summary Hospital Course Discharge Diagnosis: recurrent colon cancer Hospital Course: Patient underwent open re-resection of her ileocolonic anastomosis and splenic flexure mobilization. She had very well postoperatively with good pain control and had a small bowel movement on postoperative day 1. Her hemoglobin improved above her preoperative hemoglobin with a preoperative transfusion and iron infusions. Status at Discharge Cognitive/behavioral status at discharge: oriented Functional status at discharge: independent ambulation Overall status at discharge: patient is back to baseline Time Spent with Patient Time spent: Less than 30 minutes Exam Vital Signs (past 8 hours): - 06/29/24 08:00 06/29/24 10:00 06/29/24 10:06 Temperature 97.7 F Pulse Rate 79 Pulse Rate [Orthostatic Lying] 79 Pulse Rate [Orthostatic Sitting] 90 Pulse Rate [Orthostatic Standing] 102 H Respiratory Rate 20 Blood Pressure 105/51 L Blood Pressure [Orthostatic Lying] 105/51 L Blood Pressure [Orthostatic Sitting] 115/61 Blood Pressure [Orthostatic Standing] 106/58 L Pulse Oximetry 96 96 Oxygen Delivery Method Room Air Oxygen Flow Rate 0 06/29/24 12:00 06/29/24 14:00 Temperature 97.7 F Pulse Rate 79 Pulse Rate [Orthostatic Lying] Pulse Rate [Orthostatic Sitting] Pulse Rate [Orthostatic Standing] Respiratory Rate 18 Blood Pressure 102/45 L Blood Pressure [Orthostatic Lying] Blood Pressure [Orthostatic Sitting] Blood Pressure [Orthostatic Standing] Pulse Oximetry 98 98 Oxygen Delivery Method Room Air Oxygen Flow Rate 0 Oxygen Delivery Method Room Air Oxygen Flow Rate 0 Narrative Exam Narrative: Incision is clean, dry intact. Dermabond over the incision Objective Labs 06/29/24 14:18 06/29/24 05:00 Labs: Laboratory Results - last 24 hr 03/06/28/24 06/29/24 11:46 20:29 05:00 WBC 11.3 H D RBC 3.98 L Hgb 10.4 L Hct 32.8 L MCV 82.2 MCH 26.1 MCHC 31.7 RDW 19.3 H Plt Count 341 Neut % (Auto) 85.0 H Lymph % (Auto) 8.1 L Colbert % (Auto) 6.3 Eos % (Auto) 0.0 L Baso % (Auto) 0.6 Neut # (Auto) 9600 H Lymph # (Auto) 900 L Colbert # (Auto) 700 Eos # (Auto) 0 Baso # (Auto) 100 Sodium 137 137 Potassium 3.8 3.9 Chloride 110 H 109 H Carbon Dioxide 21 L 21 L BUN 9 9 Creatinine 0.79 0.82 Estimated GFR > 60 > 60 BUN/Creatinine Ratio 11.4 11.0 Glucose 116 H 97 Calcium 9.1 8.5 Magnesium 1.7 Blood Type O Positive Antibody Screen Negative Crossmatch See Detail 06/29/24 14:18 WBC RBC Hgb 9.9 L Hct 29.8 L MCV MCH MCHC RDW Plt Count Neut % (Auto) Lymph % (Auto) Colbert % (Auto) Eos % (Auto) Baso % (Auto) Neut # (Auto) Lymph # (Auto) Colbert # (Auto) Eos # (Auto) Baso # (Auto) Sodium Potassium Chloride Carbon Dioxide BUN Creatinine Estimated GFR BUN/Creatinine Ratio Glucose Calcium Magnesium Blood Type Antibody Screen Crossmatch [facility] Medical History (Updated 06/23/24 @ 07:09 by Chloe Purdy, RN) Age related osteoporosis Aortic stenosis Heart murmur Iron (Fe) deficiency anemia Phlebitis Osteoporosis Gastroesophageal reflux disease Hyperlipidemia Hypertension Local recurrence of colon cancer Colon cancer Surgical History (Updated 06/22/24 @ 14:29 by Chloe Purdy, RN) H/O cataract extraction History of tonsillectomy History of partial colectomy (2003) History of colectomy (2006) Family History Brother Cancer Social History household members: spouse Smoking Status: Former smoker alcohol intake: current Discharge Assessment & Plan Assessment and Plan Assessment: Recurrent colon cancer Plan of Treatment: Follow-up outpatient as scheduled to review pathology and discuss hematology/oncology referral Discharge Plan Discharge Plan Patient Disposition: Home Discharge orders & Medications Prescriptions: New tizanidine 2 mg tablet 2 mg PO Q8H PRN (Reason: muscle spasticity or pain) Qty: 90 0RF meloxicam 15 mg tablet 15 mg PO DAILY Qty: 30 0RF oxycodone 5 mg tablet 5 mg PO Q8H PRN (Reason: pain, severe) Qty: 7 0RF Continued diltiazem HCl 180 mg Capsule,Extended Release 24 Hr 180 mg PO DAILY hydrochlorothiazide 25 mg Tablet 5 mg PO DAILY aspirin 81 mg Tablet,Delayed Release (Dr/Ec) 81 mg PO DAILY pantoprazole 40 mg tablet,delayed release (DR/EC) 40 mg PO DAILY rosuvastatin 40 mg tablet 40 mg PO DAILY Slow Release Iron 250 mg (50 mg iron) Tablet Extended Release 250 mg PO DAILY calcium carbonate [Calcium 500] 500 mg calcium (1,250 mg) Tablet,Chewable 500 mg PO DAILY Discontinued sodium,potassium,mag sulfates [Suprep Bowel Prep Kit] 17.5-3.13-1.6 gram recon soln See Rx Instructions PO .COMPLEX Qty: 354 0RF Rx Instructions: take as directed by Physician metronidazole 500 mg tablet 500 mg PO QID Qty: 3 0RF Rx Instructions: take at 1PM, 2PM and 10PM the day prior to surgery with your bowel preparation neomycin 500 mg tablet 1 g PO TID Qty: 6 0RF Rx Instructions: administer at 1 PM, 2 PM, and 11 PM the day prior to surgery Follow up/Referrals: Aston Garcia MD [Primary Care Provider] - Diet/Activity/Treatments Diet: Regular Diet comment: soft, [id number] diet for 2 weeks Activity: No lifting, pushing, or pulling over 20 pounds Cold/Heat Therapy: May apply heat or ice, 20 minutes on/20 minutes off Skin/Wound/Dressing Care Skin care: May shower today. Do not submerge the wound in pools or tubs Report to your healthcare provider any signs of infection, such as:: chills, fever, night sweats, increased pain, unusual drainage and unusual redness Dressing: Glue will dry and fall off in 2-3 weeks Visit Report/Discharge Packet Instructions: DI for Colectomy, DI for Prescription Opioid Use Stand Alone Forms: Patient Portal/API, Stroke Signs & Symptoms, Surgery Discharge Discharge Data Primary Care Provider: Aston Garcia VTE Deep Vein Thrombosis/Pulmonary Embolism Present on Admission: No [facility] PROFEE Charge Codes Discharge inpatient/observation: [id number] ([id number])
--- NOTE | 2024-06-29 16:04 | CM.DANOTE ---
Discharge Planning/Care Management CM Discharge Assessment Start: 06/29/24 16:01 Freq: Status: Active Protocol: Document 06/29/24 16:01 ARMANDO (Rec: 06/29/24 16:04 JW [id number]) Discharge Planning Assessment Assigned Medical Staff Services Coordinator CHARLIE Bowman DPOA/Assigned Designee Name Audrey Serrato, christiano Contact Information [phone] Advance Directives? Yes Advance Directives on File No History Provided By Patient,Medical Record Prior Living Arrangements House Household Members spouse Type of transporation used prior to Drives own vehicle admit Independent with ADL's Yes Is patient alert and oriented? Yes Caregiver for Another Yes: Spouse Barriers to Discharge No Comment Patient is discharged home today s/p p open partial colectomy - Tae Cook MD and has been cleared by [facility] for this plan. Discharge Plan Home Transportation Arrangement Family Referrals Initiated None needed Pre-Anesthesia Assessment Start: 06/22/24 12:01 Freq: Status: Active Protocol: Document 06/22/24 12:01 LB (Rec: 06/22/24 12:16 LB [id number]) Pre-Anesthesia Assessment PAC Comment 06/22/24 Phone assessment. Pt will have received 5 iron infusions prior to surger . Patient Information Reviewed Via Phone Assessment Assessment Completed With Patient Comment 06/10/24 at . Hgb 8.6, Hct 26.7, Co2 15, glucose 40 Primary Care Provider Christi Ascencio Seen Specialist in Last 12 Months Yes Specialist Seen General surgeon,Oncologist Primary Language Nigerien Preferred Language Nigerien Aviation Maintenance Technician Required No Height 157.48 cm Weight 52.163 kg Body Mass Index (BMI) 21.0 Hearing Ability Use of Hearing Aid Visual Assist Glasses Dentition Type Partial- Upper Barriers to Learning None Other Aids No Hx Anesthesia Reactions No Hx Family Anesthesia Reaction No Hx Malignant Hyperthermia No Hx Blood Transfusions Yes: 06/06. Hx Blood Transfusion Reaction No Anesthesia Review Requested No Surgical Instrument Maker No alcohol intake current alcohol intake frequency holidays/special occasions only Smoking Status Former smoker Tobacco type cigarettes how long ago did patient quit smoking ~1989. Substance Use Type [#R] does not use Pain Present Denied Pain Patient is completely paralyzed or No completely immobile Mental Status Oriented to own ability Is patient on oxygen? No Does patient have ANGEL/SOB No Hx Sleep Apnea No Currently Taking a Beta Mario No Can You Climb a Flight of Stairs Without Yes SOB Hx Chest Pain No Hx SOB No Hx Syncope or Dizziness No Anti-Coagulant Therapy Yes: Aspirin 81mg qd Has a Humanities Instructor No Cardiac Testing Yes: Echo 06/20/24. Hx Pacemaker/ICD No Dysphagia No: Was an issue in the past. Comment Tolerating iron. Urinary Catheter Present No Hx Urinary Self Catheterization No Diabetes No Patient No Lactating No Presence of External or Internal Medical Yes: Bilat IOL's. Devices Have you had any close contact with No someone diagnosed with COVID-19? Are you experiencing any of these No symptoms symptoms? Received a COVID vaccine? Yes Comment Denies covid last 8 weeks. Marital Status Lives With spouse Current Living Arrangements House Number of Floors (Floors) Two Floors Number of Stairs To Enter/Railing? 9 + 4 stairs with railing. Support System Child/Children,Other Does the Patient Have Assistance After Yes Surgery Patient Discharge Plan Description Return Home Comment Advised 3 night LOS. Additional comment Pt is care coordination manager to . Children are coming to help. Feels Safe in Current Environment Yes Emergency Contact Name Audrey Serrato - daughter Emergency Contact Advance Directives? Yes Advance Directives on File No Requested Patient Bring Advanced Yes Directives DOS PAC Instructions Assistance for 24 hours post- op,Medications to take/avoid, No ETOH/petroleum product on skin DOS,NPO,Post-op transportation,Pre-surgical wash,Sensory aids,Sturdy shoes /comfortable clothes,Do not bring valuables and remove jewelry
--- NOTE | 2024-06-29 22:27 | PC.WOUNDPHOT ---
^ R forearm red & swollen, photo taken at start of shift. Notably improved since then. Skin is intact. Ice applied & arm elevated. Denies pain.
[2024-06-30] VITALS: BP 110/54; PULSE 80; RESP 19; TEMP 36.7; O2SAT 96
[2024-06-30 02:00] VITALS: O2SAT 95
[2024-06-30 04:00] VITALS: BP 140/76; PULSE 89; RESP 18; TEMP 36.4; O2SAT 96
[2024-06-30 05:13] LABS: Add Manual Diff / Slide Review NO; Basophils Absolute Auto 0 /uL (0-100); Basophils Percent Auto 0.3 % (0-2); Eosinophils Absolute Auto 400 /uL (0-450); Hematocrit 26.7 % (36-46); Hemoglobin 8.8 g/dL (12.0-16.0); Lymphocytes Absolute Auto 1500 /uL (1100-4500); Lymphocytes Percent Auto 12.4 % (25-40); Mean Corpuscular HGB Conc 32.9 % (30-36); Mean Corpuscular Hemoglobin 26.8 PG (26-34); Mean Corpuscular Volume 81.5 fL (80-100); Monocytes Absolute Auto 800 /uL (0-900); Neutrophils Absolute Auto 9200 /uL (1500-7000); Neutrophils Percent Auto 77.3 % (50-75); Platelet Count 302 X10^3/uL (150-400); Red Blood Cell Count 3.27 X10^6/uL (4.0-5.2); Red Cell Distribution Width 20.1 % (11.6-14.8); White Blood Cell Count 11.9 X10^3/uL (4.5-11.0)
[2024-06-30 05:27] LABS: BUN Creatinine Ratio 14.4 (6-22); Blood Urea Nitrogen 18 mg/dL (7-17); Calcium 8.4 mg/dL (8.4-10.2); Carbon Dioxide 22 mmol/L (22-32); Chloride 110 mmol/L (98-107); Estimated Glomerular Filt Rate 42 mL/min (>60); Glucose 85 mg/dL (80-110); HEMOLYSIS < 15 (0-50); Magnesium 2.3 mg/dL (1.6-2.3); Potassium 3.8 mmol/L (3.4-5.1); Sodium 137 mmol/L (137-145)
[2024-06-30 05:40] LABS: Anisocytosis 2+; Hypochromasia 1+; Microcytosis 1+; Platelet Estimate Adequate on smear
[2024-06-30 08:00] VITALS: BP 108/41; PULSE 87; RESP 20; TEMP 36.4; O2SAT 95
--- NOTE | 2024-06-30 09:00 | PT.IPTN ---
Current Diagnoses Malignant neoplasm of colon, unspecified (06/28/24) Surgery Performed Operation Date: 06/28/24 11:45 Actual Procedures p open partial colectomy - Tae Cook MD Physical Therapy Treatment Note M2 PT-IP Current Condition Start: 06/29/24 13:28 Freq: NEEDED Status: Active Protocol: Document 06/29/24 13:21 DLM (Rec: 06/29/24 13:45 DLM [id number]) Physical Therapy Current Condition Current Condition Evaluation Date 06/29/24 Treatment Diagnosis partial colectomy, impaired gait Onset Date 06/28/24 M3 PT-IP Subjective Start: 06/29/24 13:28 Freq: NEEDED Status: Active Protocol: Document 06/30/24 09:00 DLM (Rec: 06/30/24 09:25 DL [id number]) Subjective Physical Therapy Visit Type Type Treatment Note Visit Start Time 08:30 Visit Stop Time 09:00 Notes 30 minutes Number of STAFF COMMAND AND CONTROL OFFICER Visits 0 Physical Therapy Visit Comments Patient Comments She reports doing better eating breakfast this morning Patient Goals Discharge home Therapy Pain Assessment Pain When Pain Assessed During Mobility Pain Present Pain Present Pain Reported Location abdomen Intensity 4 Scale Used Numeric (0 - 10) Description Aching,Tender,With Movement Pain Behaviors Guarding,Holding Area Pain Management Techniques Re-positioning M4 PT-IP Mobility and Gait Start: 06/29/24 13:28 Freq: NEEDED Status: Active Protocol: Document 06/30/24 09:00 DLM (Rec: 06/30/24 09:25 DL [id number]) PT-Bed Mobility Assessment Rolling Type of Rolling Log Rolling,Bilateral Level of Assist Independent Supine to Sit Supine to Sit Independent Sit to Supine Sit to Supine Independent Scooting Scooting to Edge of Bed Independent PT-Transfer Assessment Sit to and From Stand Sit to and from Stand Independent,Use of Upper Extremities Equipment Transfer Assistive Device None Transfers Transfer Destination Chair Transfer Technique Stand Step Pivot Transfer Ability Level of Assist Independent,Use of Upper Extremities Comments Mobility Comments good use of UE's to assist with movements, moves slowly to manage her pain but pace is still functional Gait Assessment Gait Gait Assistance Required: Standby Assistance Distance (Feet) 250 Assistive Devices Assistive Device Straight Cane Gait Deviations General Gait Pattern Decreased Stride Length,Flexed Trunk Factors Limiting Gait Function Factors Limiting Gait Function Pain Comments Gait Comments improved balance with use of cane vs no device, no losses of balance when using cane, pace of gait shows mild decrease in speed but her pace is functional Stair Climbing Assessment Evaluation Level of Assist On Stairs Independent Devices Stair Climbing Assistive Devices Straight Cane,Left Railing Technique/Endurance Stair Climbing Direction Ascend and Descend Stair Climbing Technique Step Over Step Number of Steps Climbed 3 Stair Climbing Set # Repetitions (reps) 1 Comments Stair Climbing Comments no increase in abdominal pain reported with stairs at this time, good tolerance for stair training PT-Balance Assessment Sitting Balance and Reactions Static Sitting Balance Ability Normal Dynamic Sitting Balance Ability Normal Standing Balance and Reactions Static Standing Balance Ability Good Dynamic Standing Balance Ability Good Device Used cane M5 PT-IP Objective Assessments Start: 06/29/24 13:28 Freq: NEEDED Status: Active Protocol: Document 06/29/24 13:21 DLM (Rec: 06/29/24 13:45 DLM [id number]) Orientation Orientation/Cognition Level of Alertness Alert Orientation Name,Age,Birthday,Month,Date, Year,Day of Week,Place, Situation Language Function Ability No Deficits Noted Safety Awareness Understands Safety Issues Memory Description No Deficits Noted Gross Range of Motion Upper Extremity ROM Assessment Within Functional Limits Impairments arthritic changes in fingers with left hand more than right Lower Extremity ROM Assessment Within Functional Limits Strength Upper Extremity Strength Assessment right shoulder weakness, elevation 2+/5 hx of right shoulder injury from a fall Lower Extremity Strength Assessment Within Functional Limits Coordination Assessment Gross Coordination Gross Coordination WNL Sensation Assessment Sensation Gross Sensation WNL Muscle Tone Muscle Tone WNL Yes M6 PT-IP Treatment Start: 06/29/24 13:28 Freq: NEEDED Status: Active Protocol: Document 06/30/24 09:00 DLM (Rec: 06/30/24 09:25 DLM [id number]) Physical Therapy Treatment Exercises Exercises Ankle Pumps,Seated Knee Flexion/Extension Education Education Provided Safety Other Treatments Other Treatment Performed seated hip flexion only 5 reps to protect abdominal pain 10 reps of knee and ankle exercises bilaterally Active right shoulder flexion is 30 degrees and AAROM to 90 degrees. Pt reports hx of right shoulder injury from fall. Pt uses right UE well functionally to eat and mobility M7 PT-IP Assessment and Plan Start: 06/29/24 13:28 Freq: NEEDED Status: Active Protocol: Document 06/30/24 09:00 DLM (Rec: 06/30/24 09:25 DL [id number]) PT Summary Assessment and Plan Summary Progress Towards Goals Safe For Discharge Assessment Summary Zina is progressing well post- op. Gait training performed with a cane this visit which improved her standing balance during gait. Discussed use of FWW with pt but she has stairs at home which makes a walker more challenging for her to manage. She has a cane at home to use as needed. Recommend she use a cane for all gait at this time to decrease her fall risks. Will discharge Physical Therapy at this time and defer further supervision of mobility and gait to nursing during the remainder of this hospitalization. Goals Bed Mobility Goal Independent Transfer Goal Independent Gait Goal Independent Gait Distance 300 ft Days to Meet Goals 2 Frequency of Treatment Frequency Of Treatment Discharge Treatment Plan Other Recommendations and Next Treatment recommend she use st cane for Focus all gait to decrease fall risks Precautions Abdominal Surgery Precautions Log Roll,Lifting Restrictions, Gait Belt above Incisional Area Recommendations To Nursing Amount of Assist Needed Standby Assistance,1 Person Assist Discharge Recommendations PT Discharge Recommendations Home with Assistance Other Discharge Recommendations will have family support at discharge Transportation Needs at Discharge Private Vehicle - PT assist 1P
[2024-06-30] MEDS: ATORVASTATIN 20 MG TABLET 80 MG PO (09:53)
[2024-06-30] MEDS: CALCIUM CARBONATE 500 MG TAB PO (09:55)
[2024-06-30] MEDS: ASPIRIN EC 81 MG TABLET PO (09:55)
[2024-06-30] MEDS: FERROUS SULFATE 325 MG TABLET PO (09:56)
[2024-06-30] MEDS: PANTOPRAZOLE DR 40 MG TABLET PO (09:56)
[2024-06-30] MEDS: SODIUM FERRIC GLUCONAT/SUCROSE 125 MG in SODIUM CHLORIDE 0.9% 100 ML 110 MG IV (09:58)
[2024-06-30] MEDS: HEPARIN 5,000 UNIT/ML VIAL 5000 UNIT SUBCUT (10:00)
--- NOTE | 2024-06-30 10:26 | OT.IPNOTE ---
Pt states has no further OT needs and to go home today. Encouraged pt to use a cane.
[2024-06-30] MEDS: IBUPROFEN 400 MG TABLET PO ×2 (10:33→14:11)
[2024-06-30 12:00] VITALS: BP 112/52; PULSE 87; RESP 16; TEMP 36.2; O2SAT 100
[2024-06-30] MEDS: ACETAMINOPHEN 325 MG TABLET 650 MG PO (12:04)
--- NOTE | 2024-06-30 14:06 | P.PN_ITS ---
Subjective Subjective Date Patient Seen: 06/30/24 Time Patient Seen: 14:06 Interval history: postop day 2 from ileocolonic anastomosis. Patient doing well. Tolerating p.o.. Having bowel movements. Cleared by PT. pain is well-controlled. Patient was set up for discharge later today Exam Vital Signs (past 8 hours): - 06/30/24 08:00 06/30/24 12:00 Temperature 97.6 F 97.2 F L Pulse Rate 87 87 Respiratory Rate 20 16 Blood Pressure 108/41 L 112/52 L Pulse Oximetry 95 100 Oxygen Flow Rate 0 0 Oxygen Delivery Method Room Air Oxygen Flow Rate 0 Narrative Exam Narrative: alert and oriented x3, no acute distress abdomen is soft, nontender, incision clean dry and intact. Benign Objective Labs 06/30/24 04:32 06/30/24 04:32 Labs: Laboratory Results - last 24 hr 06/28/24 06/29/24 06/30/24 11:46 14:18 04:32 WBC 11.9 H RBC 3.27 L Hgb 9.9 L 8.8 L Hct 29.8 L 26.7 L MCV 81.5 MCH 26.8 MCHC 32.9 RDW 20.1 H Plt Count 302 Neut % (Auto) 77.3 H Lymph % (Auto) 12.4 L Phelps % (Auto) 7.0 Eos % (Auto) 3.0 Baso % (Auto) 0.3 Neut # (Auto) 9200 H Lymph # (Auto) 1500 Phelps # (Auto) 800 Eos # (Auto) 400 Baso # (Auto) 0 Platelet Estimate Adequate on smear RBC Morphology See below Hypochromasia 1+ H Anisocytosis 2+ H Microcytosis 1+ H Sodium 137 Potassium 3.8 Chloride 110 H Carbon Dioxide 22 BUN 18 H Creatinine 1.25 H Estimated GFR 42 L BUN/Creatinine Ratio 14.4 Glucose 85 Calcium 8.4 Magnesium 2.3 Blood Type O Positive Antibody Screen Negative Crossmatch See Detail [facility] Medical History (Updated 06/23/24 @ 07:09 by Chloe Purdy RN) Age related osteoporosis Aortic stenosis Heart murmur Iron (Fe) deficiency anemia Phlebitis Osteoporosis Gastroesophageal reflux disease Hyperlipidemia Hypertension Local recurrence of colon cancer Colon cancer Surgical History (Updated 06/22/24 @ 14:29 by Chloe Purdy RN) H/O cataract extraction History of tonsillectomy History of partial colectomy (2003) History of colectomy (2006) Family History Brother Cancer Social History household members: spouse Smoking Status: Former smoker alcohol intake: current Assessment & Plan Assessment & Plan narrative: postop day 2 from ileocolic anastomosis, doing well. Stable for discharge. Paperwork completed by the operative surgeon already, and I see no barriers to discharge from my perspective today. Time-Based Coding :: [TOTAL MINUTES] spent with patient and on the chart (including review of chart, obtaining history, exam, reviewing outside data, placing orders, documenting exam and treatment plan, and counseling patient) on [DATE]. Quality VTE Deep Vein Thrombosis/Pulmonary Embolism Present on Admission: No IH PROFEE Payroll Administrative Assistant Document charge(s): Yes
--- NOTE | 2024-06-30 14:18 | PC.NURSE ---
Pt has not complained of pain today, ate lunch, no complaints of nausea and has been sitting up in chair in room. Surgeon checked in with pt and said she is ok to discharge today, Rn educated pt on discharge instructions, dc packet explained to pt, pt signed and asked RN to call her son for a ride, nurse head start assistant teacher removed pt IV and helped her dress, pt is waiting now for her son to give her a ride. Son told RN he will be here shortly.
== END 2024-06-30 15:00 | disposition home or self-care (01) | DRG 331 ==
PROVIDERS: Nurse Anesthetist, Certified Registered; Admitting Provider Surgery; PCP Family Medicine; Referring Provider Surgery; Visit Provider Surgery
PROC: 0DTL0ZZ Resection of Transverse Colon, Open Approach (ICD-10-PCS; CPT 44140; principal; 2024-06-28 11:45)
DX: C18.4 Malignant neoplasm of transverse colon (principal); D50.0 Iron deficiency anemia secondary to blood loss (chronic); I10 Essential (primary) hypertension; E78.5 Hyperlipidemia, unspecified; K21.9 Gastro-esophageal reflux disease without esophagitis; Z87.891 Personal history of nicotine dependence
CPT/HCPCS: 36415; 36430; 44139; 44140; 80048; 80053; 83735; 85014; 85018; 85025; 85027; 86850; 86900; 86901; 86927; 96365; 97116; 97166; 97530; P9016; J0131; J0666; J0690; J1644; J1756; J2405; J2704; J2916; J3010

== ENCOUNTER → 2024-07-11 11:04 | Outpatient (CLI) | payer MEDICARE, OTHER, SELFPAY ==
[2024-06-28 18:40] VITALS: BMI 20.3
[2024-07-11 12:36] LABS: Add Manual Diff / Slide Review NO; Basophils Absolute Auto 100 /uL (0-100); Basophils Percent Auto 0.7 % (0-2); Eosinophils Absolute Auto 600 /uL (0-450); Eosinophils Percent Auto 6.5 % (2-4); Hemoglobin 10.1 g/dL (12.0-16.0); Lymphocytes Absolute Auto 1500 /uL (1100-4500); Lymphocytes Percent Auto 16.3 % (25-40); Mean Corpuscular HGB Conc 32.5 % (30-36); Mean Corpuscular Hemoglobin 27.1 PG (26-34); Mean Corpuscular Volume 83.1 fL (80-100); Monocytes Absolute Auto 800 /uL (0-900); Monocytes Percent Auto 8.6 % (3-14); Neutrophils Absolute Auto 6400 /uL (1500-7000); Neutrophils Percent Auto 67.9 % (50-75); Platelet Count 355 X10^3/uL (150-400); Red Blood Cell Count 3.73 X10^6/uL (4.0-5.2); Red Cell Distribution Width 20.7 % (11.6-14.8); White Blood Cell Count 9.4 X10^3/uL (4.5-11.0)
[2024-07-11 12:53] LABS: Anisocytosis 2+
== END ==
PROVIDERS: Surgery; PCP Family Medicine; Referring Provider Family Medicine; Visit Provider Family Medicine
DX: C18.9 Malignant neoplasm of colon, unspecified (principal)
CPT/HCPCS: 36415; 85025